=== PATIENT | female | born 1940 | race Caucasian/White ===

== ENCOUNTER 2017-06-08 00:42 | Inpatient (IN) | payer OTHER ==
[~2017-06-08] VITALS: Ht 160 cm; Wt 53.0 kg
[~2017-06-08 00:42] MED LIST: AMLO-110 PO; CHOL100027 PO; HYOS0.1271 PO; LEVO-366 PO; LISI-725 PO
[2017-06-08] MEDS ORDERED: METHYLPREDNISOLONE 125 MG VIAL IV STA (01:05)
[2017-06-08] MEDS ORDERED: RANITIDINE HCL SYRUP 150 MG/10 ML UDC PO STA (01:05)
[2017-06-08] MEDS ORDERED: GI COCKTAIL PO STA (01:05)
[2017-06-08] MEDS ORDERED: SUCRALFATE 1 GM/10 ML UDC PO STA (01:05)
[2017-06-08] MEDS ORDERED: ALBUT/IPRATROP 3MG/0.5MG NEB 3 ML VIAL INH ONE (01:15)
--- NOTE | 2017-06-08 01:18 | EMERGENCY ROOM VISIT NOTE ---
History Report prepared by [employer]: Manuel Saez Under the Supervision of: Dr. Trav Reyes M.D. First contact with patient: 00:54 Chief Complaint: RESPIRATORY PROBLEMS Stated Complaint: DIFFICULTY BREATHING Nursing Triage Summary: Pt to triage in wheelchair. c/o cough for 6 weeks, at times productive. Has been on 4 different abx from PCP. Pt on Levaquin and Hyoscyamine for the past 3 days."I just can't get any relief". Pt has Inclusive Body Myocitis. Denies chest pain History of Present Illness The patient is a 76 year old female who presents to the Emergency Room with complaints of a constant cough for the past 6 weeks. The patient states that she has a history of inclusive body myositis. The patient states that she has had this cough for a while, and she has been on four different antibiotics. She states that she is additionally short of breath, and the cough is worse while lying down. She states that she is not any medications for her stomach. Source of History: patient Onset: six weeks ago Position: other (global) Quality: other (cough) Timing: constant Modifying Factors (Worsening): other (lying down) Associated Symptoms: + SOB Review of Systems See HPI for pertinent positives & negatives. A total of 10 systems reviewed and were otherwise negative. Past Medical & Surgical Medical Problems: (1) Generalized muscle weakness (2) Hypertension (3) Inclusion body myositis (4) Myositis (5) Osteoporosis (6) SOB (shortness of breath) Surgical Problems: (1) History of hysterectomy Social History Smoking Status: Never Smoker Alcohol Use: none Marital Status: Occupation Status: retired Current/Historical Medications Scheduled Amlodipine (Norvasc), 5 MG PO DAILY Aspirin (Ecotrin Low Strength), 81 MG PO DAILY Atorvastatin (Lipitor), 10 MG PO DAILY Calcium Phosphate-Cholecalcife (Caltrate Gummy Bites), 2 TABS PO DAILY Fluticasone Propionate (Nasal) (Flonase Allergy Relief), 2 SPRAYS CINTHIA DAILY Levofloxacin (Levaquin), 500 MG PO DAILY Lisinopril (Prinivil), 30 MG PO DAILY Loratadine (Claritin), 10 MG PO DAILY Scheduled PRN Benzonatate (Tessalon Perles), 1 CAP PO TID PRN for Cough Hydrocodone W/ Homatropine (Hycodan 5/1.5MG 5 Ml), 5 ML PO Q6H PRN for Cough Hyoscyamine Sulfate (Hyoscyamine Sulfate), 0.125 MG PO BID PRN for UNDECIDED Allergies Coded Allergies: Sulfa Drugs (Verified Allergy, Unknown, 12/02/09) Physical Exam Vital Signs Date Time Temp Pulse Resp B/P (MAP) Pulse Ox O2 Delivery O2 Flow Rate FiO2 06/08/17 04:17 134 17 96 06/08/17 04:01 132/83 06/08/17 03:47 133 36 94 06/08/17 03:17 136 24 95 06/08/17 03:01 137/79 06/08/17 02:51 117/96 06/08/17 02:51 127 16 117/96 96 Room Air 06/08/17 02:47 129 13 97 06/08/17 02:17 112 19 97 06/08/17 01:47 115 17 93 06/08/17 01:42 116 13 96 06/08/17 01:14 109 06/08/17 01:12 110 14 94 06/08/17 01:10 97 Room Air 06/08/17 01:10 157/75 06/08/17 00:53 97 Room Air 06/08/17 00:46 36.9 115 22 158/83 97 Room Air Physical Exam GENERAL: Patient is a healthy-appearing well-nourished female HEAD: Normocephalic atraumatic EYES: Ocular movements intact pupils equal and react to light OROPHARYNX mucous membranes are moist no exudates present no erythema or edema present NECK: Supple no nuchal rigidity CHEST: Good equal expansion LUNGS: Actively coughing. Bilateral wheezing throughout both lung pelayo. CARDIAC: Normal S1 and S2 ABDOMEN: Soft nontender no guarding BACK: No CVA tenderness EXTREMITIES: 3/5 strength bilaterally in the arms. 2/5 strength in the legs bilaterally. No pain upon palpation no clubbing cyanosis or edema. NEURO: Patient is following commands and answering questions appropriately. Alert and oriented x3 Cranial Nerves 2-12 grossly intact Medical Decision & Procedures ER Provider Diagnostic Interpretation: X-ray results as stated below per interpretation by me: Chest One View: No evidence of pneumonia or pneumothorax. Appers to have increased congestion throughout both lung pelayo. CT results as stated below per my review and radiologist interpretation: CT CHEST with contrast: No evidence of PE. Underinflated lungs with minimal atelectasis in the lung bases. No pleural effusions. Heart size is normal. Thoracic aorta is unremarkable. Compression deformity T12 Laboratory Results 06/08/17 01:18 Red Blood Count 3.58, Mean Corpuscular Volume 86.9, Mean Corpuscular Hemoglobin 29.6, Mean Corpuscular Hemoglobin Concent 34.1, Mean Platelet Volume 8.0, Neutrophils (%) (Auto) 56.9, Lymphocytes (%) (Auto) 31.3, Monocytes (%) (Auto) 8.1, Eosinophils (%) (Auto) 2.3, Basophils (%) (Auto) 0.9, Neutrophils # (Auto) 3.21, Lymphocytes # (Auto) 1.77, Monocytes # (Auto) 0.46, Eosinophils # (Auto) 0.13, Basophils # (Auto) 0.05 06/08/17 01:18 Test 06/08/17 01:18 06/08/17 01:52 White Blood Count 5.65 K/uL (4.8-10.8) Red Blood Count 3.58 M/uL (4.2-5.4) Hemoglobin 10.6 g/dL (12.0-16.0) Hematocrit 31.1 % (37-47) Mean Corpuscular Volume 86.9 fL (80-100) Mean Corpuscular Hemoglobin 29.6 pg (25-34) Mean Corpuscular Hemoglobin Concent 34.1 g/dl (32-36) Platelet Count 155 K/uL (130-400) Mean Platelet Volume 8.0 fL (7.4-10.4) Neutrophils (%) (Auto) 56.9 % Lymphocytes (%) (Auto) 31.3 % Monocytes (%) (Auto) 8.1 % Eosinophils (%) (Auto) 2.3 % Basophils (%) (Auto) 0.9 % Neutrophils # (Auto) 3.21 K/uL (1.4-6.5) Lymphocytes # (Auto) 1.77 K/uL (1.2-3.4) Monocytes # (Auto) 0.46 K/uL (0.11-0.59) Eosinophils # (Auto) 0.13 K/uL (0-0.5) Basophils # (Auto) 0.05 K/uL (0-0.2) RDW Standard Deviation 48.1 fL (36.4-46.3) RDW Coefficient of Variation 15.0 % (11.5-14.5) Immature Granulocyte % (Auto) 0.5 % Immature Granulocyte # (Auto) 0.03 K/uL (0.00-0.02) Anion Gap 8.0 mmol/L (3-11) Est Creatinine Clear Calc Drug Dose 160.8 ml/min Estimated GFR () 139.7 Estimated GFR (Non- 120.5 BUN/Creatinine Ratio 73.0 (10-20) Calcium Level 8.5 mg/dl (8.5-10.1) Total Bilirubin 0.4 mg/dl (0.2-1) Aspartate Amino Transf (AST/SGOT) 30 U/L (15-37) Alanine Aminotransferase (ALT/SGPT) 21 U/L (12-78) Alkaline Phosphatase 115 U/L (45-117) Total Creatine Kinase 49 U/L (26-192) Creatine Kinase MB 2.8 ng/ml (0.5-3.6) Creatine Kinase MB Ratio 5.7 (0-3.0) Troponin I < 0.015 ng/ml (0-0.045) Pro-B-Type Natriuretic Peptide 256 pg/ml (0-900) Total Protein 7.6 gm/dl (6.4-8.2) Albumin 3.1 gm/dl (3.4-5.0) Globulin 4.5 gm/dl (2.5-4.0) Albumin/Globulin Ratio 0.7 (0.9-2) Arterial Blood pH 7.44 (7.35-7.45) Arterial Blood Partial Pressure CO2 30 mmHg (35-46) Arterial Blood Partial Pressure O2 69 mm/Hg (80-95) Arterial Blood HCO3 20 mmol/L (19-24) Arterial Blood Oxygen Saturation 92.7 % (90-95) Arterial Blood Base Excess -3.4 mEq/L (-9-1.8) Arterial Blood Gas Delivery ROOM AIR Matteo Test POS (POS) Labs reviewed by ED physician. Medications Administered Medications (Trade) Dose Ordered Sig/Kristy Route Start Time Stop Time Status Last Admin Dose Admin Albuterol/ Ipratropium (Duoneb) 12 ml ONE ONCE INH 06/08/17 01:15 06/08/17 01:16 DC 06/08/17 01:33 12 ML Sucralfate (Carafate Susp) 1 gm NOW STAT PO 06/08/17 01:05 06/08/17 01:09 DC 06/08/17 01:38 1 GM Ranitidine HCl (zANTac SYRUP) 150 mg NOW STAT PO 06/08/17 01:05 06/08/17 01:09 DC 06/08/17 01:28 150 MG Methylprednisolone Sodium Succinate (Solu-Medrol IV) 60 mg NOW STAT IV 06/08/17 01:05 06/08/17 01:09 DC 06/08/17 01:28 60 MG Al Hydroxide/Mg Hydroxide (Maalox Susp) 30 ml STK-MED ONCE .ROUTE 06/08/17 01:20 06/08/17 01:21 DC 06/08/17 01:28 30 ML Lidocaine HCl (Viscous Lidocaine 2% Soln) 20 ml STK-MED ONCE .ROUTE 06/08/17 01:20 06/08/17 01:21 DC 06/08/17 01:28 20 ML Doxycycline Hyclate (Vibramycin Cap) 100 mg STK-MED ONCE PO 06/08/17 03:55 06/08/17 03:56 DC 06/08/17 03:57 100 MG ECG Indication: other (cough) Rate (beats per minute): 109 Rhythm: sinus tachycardia Findings: no acute ischemic change, no ectopy, other (Previous inferior infarct ) ED Course 0058: Past medical records reviewed. The patient was evaluated in room B10. A complete history and physical examination was performed. 0105: Solu-Medrol IV 60mg IV, Ranitidine HCl 150mg PO, Sucralfate 1gm PO 0115: DuoNeb 12ml INH 0120: Viscous Lidocaine 2% Soln 20ml PO, Maalox Susp 30ml PO 0239: I discussed the patient's case with Dr. Dominguez, he has agreed to evaluate the patient for further management and care. 0245: I reevaluated the patient, and I discussed the treatment plan with her, and she is agreeable to the plan. Medical Decision Differential diagnosis: Etiologies such as infections, reactive airway disease, pneumonia, pneumothorax , COPD, CHF, cardiac ischemia, pulmonary embolism, musculoskeletal, gastrointestinal, as well as others were entertained. This is a 76-year-old female who has had a progressive cough over the past month despite being on multiple antibiotics. The patient feels that she is not improving however she is unable to take deep breaths. The patient is wheezing on examination therefore she was given an hour-long breathing treatment along with Solu-Medrol. Her peak flow is only 50 and the patient was evaluated by respiratory. I do feel that the patient is a poor candidate to be discharged home therefore I did discuss the case with the hospitalist service who agreed to admit the patient. Patient was in agreement with the treatment plan. Medication Reconcilliation Current Medication List: was personally reviewed by me Blood Pressure Screening Patient's blood pressure: Normal blood pressure Consults Time Called: [phone] Consulting Physician: Libia Suarez Returned Call: [phone] I discussed the patient's case with Dr. Dominguez, he has agreed to evaluate the patient for further management and care. Impression Primary Impression: Dyspnea Scribe Attestation The scribe's documentation has been prepared under my direction and personally reviewed by me in its entirety. I confirm that the note above accurately reflects all work, treatment, procedures, and medical decision making performed by me. Departure Information Dispostion Being Evaluated By Hospitalist Referrals Keke Colon D.O. (PCP) Patient Instructions My [facility] Problem Qualifiers Primary Impression: Dyspnea Dyspnea type: unspecified Qualified Codes: R06.00 - Dyspnea, unspecified
[2017-06-08] MEDS ORDERED: LIDOCAINE HCL 2% VISC SOLN 20 ML UDC ONE (01:20)
[2017-06-08] MEDS ORDERED: ALUMINUM/MAGNESIUM SUSP 30 ML UDC ONE (01:20)
[2017-06-08 01:35] LABS: BASO % 0.9 %; BASO ABS # 0.05 K/uL (0-0.2); COMPLETE YES; EOS % 2.3 %; HEMATOCRIT 31.1 % (37-47); IG% 0.5 %; LYMPH % 31.3 %; LYMPH ABS # 1.77 K/uL (1.2-3.4); MEAN CELL VOLUME 86.9 fL (80-100); MEAN CORPUSCULAR HEMOGLOBIN 29.6 pg (25-34); MEAN CORPUSCULAR HGB CONC 34.1 g/dl (32-36); MONO % 8.1 %; NEUT % 56.9 %; PLATELET COUNT 155 K/uL (130-400); RED BLOOD COUNT 3.58 M/uL (4.2-5.4); WHITE BLOOD COUNT 5.65 K/uL (4.8-10.8)
[2017-06-08 01:43] LABS: ALT/SGPT 21 U/L (12-78); AST/SGOT 30 U/L (15-37); BLOOD UREA NITROGEN 18 mg/dl (7-18); CALCIUM 8.5 mg/dl (8.5-10.1); CARBON DIOXIDE 23 mmol/L (21-32); CHLORIDE 103 mmol/L (98-107); CREATININE 0.24 mg/dl (0.60-1.20); GLUCOSE 93 mg/dl (70-99); POTASSIUM 4.5 mmol/L (3.5-5.1); SODIUM 134 mmol/L (136-145)
[2017-06-08] MEDS ORDERED: OPTIRAY 320 IV PRN (01:45)
[2017-06-08 01:48] LABS: ALB/GLOB RATIO 0.7 (0.9-2); ALKALINE PHOSPHATASE 115 U/L (45-117); CKMB/CK RATIO 5.7 (0-3.0)
[2017-06-08] MEDS ORDERED: ATOR10TA88 PO (01:50)
[2017-06-08] MEDS ORDERED: AMLO-110 PO (01:50)
[2017-06-08] MEDS ORDERED: FLUT0.15 NAE (01:50)
[2017-06-08] MEDS ORDERED: LISI-526 PO (01:50)
[2017-06-08] MEDS ORDERED: CLR10 PO (01:50)
[2017-06-08] MEDS ORDERED: ASPI-428 PO (01:51)
[2017-06-08] MEDS ORDERED: CALC1CHW32 PO (01:52)
[2017-06-08] MEDS ORDERED: BENZ100C84 PO (01:52)
[2017-06-08] MEDS ORDERED: HYDR5SYP11 PO (01:53)
[2017-06-08 02:05] LABS: ALLEN TEST POS (POS); ARTERIAL BLD GAS O2 SATURATION 92.7 % (90-95); ARTERIAL BLOOD GAS BASE EXCESS -3.4 mEq/L (-9-1.8); ARTERIAL BLOOD GAS HCO3 20 mmol/L (19-24); ARTERIAL BLOOD GAS PO2 69 mm/Hg (80-95); ARTERIAL BLOOD GAS pH 7.44 (7.35-7.45); O2 ADMINISTRATION ROOM AIR
[2017-06-08] MEDS ORDERED: BENZONATATE 100MG CAP PO PRN (03:45)
[2017-06-08] MEDS ORDERED: HYDROCODONE/HOMATROPINE SYRUP 5MG/1.5MG 5ML UDP PO PRN (03:45)
[2017-06-08] MEDS ORDERED: HYOSCYAMINE SULFATE 0.125 MG SL TAB PO PRN ×2 (03:45→04:45)
[2017-06-08] MEDS ORDERED: ONDANSETRON INJ 2 MG/ML 2 ML VIAL IV PRN (03:45)
[2017-06-08] MEDS ORDERED: ACETAMINOPHEN 325 MG TAB PO PRN (03:45)
[2017-06-08] MEDS ORDERED: DOXYCYCLINE HYCLATE 100 MG CAP PO ONE (03:55)
[2017-06-08] MEDS ORDERED: DOXYCYCLINE HYCLATE 100 MG CAP PO STA (03:59)
[2017-06-08] MEDS ORDERED: SODIUM CHLORIDE 0.9% 1000ML 1,000 ML IV SCH (04:45)
[2017-06-08 05:00] VITALS: BP 124/84; PULSE 132; TEMP 36.8; Ht 160 cm; Wt 53.0 kg
--- NOTE | 2017-06-08 05:09 | HISTORY & PHYSICAL EXAMINATION ---
DATE OF ADMISSION: 06/08/2017 PRIMARY CARE PHYSICIAN: Dr Orellana CHIEF COMPLAINT: Progressive shortness of breath for the last 4-6 weeks. 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 Apparently, has been complaining of shortness of breath with cough for the last 6 weeks. She has had 4 courses of different antibiotics for the same, but her breathing has been getting worse due to progressive muscle weakness secondary to inclusion body myositis. She denies to any fever, any chills. She does not have any chest pain, any palpitation. No abdominal pain, nausea, no vomiting and does not have any problem with urine and/or bowel habit. In the Emergency Room, she was afebrile, tachycardia of 115 and blood pressure is 158/83. She did have normal white count and the chest x-ray and CAT scan did not show any significant findings except low lung volume, but given her progressive shortness of breath and low saturation she was admitted to medical floor for continuation of care. PAST MEDICAL HISTORY: Significant for inclusion body myositis that was diagnosed about 12 month ago, she was seen by airways control specialist and was told that nothing more they can do to improve her condition. Progressive muscle weakness secondary to inclusion body myositis, started with her weakness in the legs and now involving the upper extremities as well. She could hardly come out of bed by herself and more recently respiratory muscles are involved as well. She has osteoporosis, hypertension, hyperlipidemia, remote history ANDERSON and also vitamin D deficiency. PAST SURGICAL HISTORY: Cataract surgery, repair of bladder and vagina, total hysterectomy. FAMILY HISTORY: Mother had colon cancer and diabetes and mother also did have heart disorder.. No history of myopathy in the family. SOCIAL HISTORY: She is a . She has 2 children. She quit smoking in 1969. She does not drink any alcohol and she has been almost bedbound. She has been getting help at home from home health and family members. She cannot come out of bed. She cannot move her legs and recently she cannot move her upper extremity as well. Her swallowing is reasonably okay. ALLERGIES: SULFA DRUGS. MEDICATIONS: She has been on levothyroxine 500 mcg daily for 10 days, amlodipine 5 mg daily, aspirin 81 mg daily, Lipitor 10 mg daily, Tessalon Perles 100 mg t.i.d., calcium phosphate and Caltrate 2 tablets daily, nasal spray 2 sprays daily that is Flonase, hydrocodone with Homatropine, Hycodan 5 mL q. 6 hourly p.r.n., hyoscyamine sulfate 0.125 mg b.i.d. as needed, lisinopril 30 mg daily, and Claritin 10 mg daily. REVIEW OF SYSTEMS: Other systems reviewed, unremarkable except for those mentioned in history of present complaint. PHYSICAL EXAMINATION: GENERAL: On examination in the Emergency Room, she is a thin built lady with moderate shortness of breath at rest. No other acute distress. VITAL SIGNS: Temperature 36.9, pulse is 115, blood pressure 158/83, saturation 97%. HEENT: Unremarkable. NECK: Supple, no JVD, no bruit. CHEST: Decreased breath sounds with fine crackles at the bases. HEART: S1, S2 regular, no murmur. ABDOMEN: Soft, benign, nontender, no organomegaly. Bowel sounds present. EXTREMITIES: Trace edema bilaterally. MUSCULOSKELETAL SYSTEM: No acute arthritis involving any joint. CENTRAL NERVOUS SYSTEM: She was alert, awake, oriented x3. She has weakness all over her upper extremity, may have 1-2 power out of 5 and lower extremity 1/5. She does not have any sensory impairment. LABORATORY DATA: Noted today white count was 5.65, H&H 10.6/31.1, platelet was 155. Sodium 134, potassium 4.5, chloride 103, carbon dioxide 23, BUN 18, creatinine 0.24, random glucose 93. LFTs normal. CK, CK-MB unremarkable. Albumin was 3.1. Arterial blood gas pH 7.44, pCO2 of 30 and pO2 of 69. Chest x-ray, no acute findings. CT of the chest to rule out pulmonary embolism, no pulmonary embolism, minimal atelectasis at the lung bases and no effusion. EKG was in sinus rhythm, rate of 109, left axis deviation, questionable inferior infarct, but no other acute findings. IMPRESSION AND PLAN: 1. Shortness of breath secondary to progressive weakness due to inclusion body myositis. She will be admitted to medical floor. She is hypoxic on room air. She will need oxygen therapy continuously, chest physiotherapy will be given and she will be given Solu-Medrol, nebulized bronchodilator and also doxycycline for probable bronchitis. 2. Inclusion body myositis with progressive weakness. She is almost bedbound. She could hardly do anything for herself. Her progressive weakness is getting worse involving the upper extremities recently and also lung muscles, but her swallowing is reasonably okay so far. We will have to get physical therapy involved and she may need placement or more help at home. 3. Hypertension. Blood pressure seems to be controlled. Continue with current medication. 4. Hyperlipidemia. Continue with current medications. 5. History of nonalcoholic steatohepatitis, no acute liver abnormality. Will check INR tomorrow and PTT. 6. Deep venous thrombosis prophylaxis with subcutaneous heparin. 7. Gastrointestinal prophylaxis with Maalox, Mylanta. 8. Code status. Discussed with the patient. She wishes to be do not resuscitate. In my clinical judgment, the beneficiary meets criteria as per CMS for 2 midnight stay in the hospital. MTDD
[2017-06-08 06:54] LABS: INR 1.1 (0.9-1.1); PROTHROMBIN TIME (PATIENT) 11.8 SECONDS (9.0-12.0)
[2017-06-08 07:23] VITALS: BP 127/82; PULSE 107; TEMP 36.6; O2SAT 95
--- NOTE | 2017-06-08 07:35 | DIAGNOSTIC IMAGING REPORT ---
CHEST CTA for PULMONARY ARTERIES CT DOSE: 270.20 mGy.cm HISTORY: Short of breath. Cough. TECHNIQUE: Multiaxial CT images of the chest were performed following the intravenous administration of contrast to evaluate the pulmonary arteries. Maximal intensity projection images were also obtained. A dose lowering technique was utilized adhering to the principles of ALARA. COMPARISON STUDY: Chest 06/08/2017. FINDINGS: Chronic T12 compression deformity. The visualized liver and adrenal glands are unremarkable. The partially visualized spleen is enlarged. Splenic varices are present. Possible periportal and splenic hilar lymphadenopathy. However, this is only partially visualized on this study. Prominent upper right peritracheal lymph node measuring 9 mm in short axis diameter. No pleural or pericardial effusions. Mild elevation of the left hemidiaphragm. The heart is normal in size. No hilar lymphadenopathy. The majority of the mediastinal lymph nodes are subcentimeter. There is a single prominent subcarinal lymph node measuring 1.5 cm. Small amount of mucoid material within the bilateral mainstem bronchi with partial opacification of the bilateral lower lobe bronchi. No pneumothorax. Suboptimal evaluation of the lungs due to motion artifact. Patchy groundglass densities within the base of the left lower lobe. This may represent atelectasis or pneumonia. Normal caliber thoracic aorta with no evidence for dissection. Bilateral lower lobe segmental and subsegmental pulmonary arteries are nondiagnostic due to the motion artifact. Remaining pulmonary arteries show no filling defects to suggest pulmonary embolus. IMPRESSION: 1. No evidence for pulmonary embolus with limitations as described above. 2. Small amount of mucoid material within the bilateral mainstem bronchi with partial opacification of the bilateral lower lobe bronchi. Patchy groundglass airspace opacities within the base of the left lower lobe are nonspecific and may represent atelectasis or pneumonia. 3. Splenomegaly. There is suggestion of possible splenic hilar and periportal lymphadenopathy. This is only partially visualized on this study. Therefore, follow-up nonemergent contrast-enhanced abdomen and pelvis CT is recommended to exclude the possibility of a lymphoma. 4. Single prominent upper right peritracheal and subcarinal lymph node. Electronically signed by: Jefferson Cantu M.D. 06/08/2017 7:34 AM Dictated Date/Time: 06/08/2017 7:24 AM
[2017-06-08 07:52] LABS: URINE APPEARANCE CLEAR (CLEAR); URINE BILIRUBIN NEG (NEG); URINE COLOR YELLOW; URINE NITRITE NEG (NEG); URINE SPECIFIC GRAVITY 1.033 (1.000-1.030); UROBILINOGEN NEG (NEG)
--- NOTE | 2017-06-08 07:52 | DIAGNOSTIC IMAGING REPORT ---
CHEST ONE VIEW PORTABLE HISTORY: Pt c/o cough COMPARISON: None. FINDINGS: The right lung is clear. Cardiac silhouette is normal in size. No pleural effusions. No pneumothorax. Mild elevation the left hemidiaphragm. Left basilar linear densities consistent with subsegmental atelectasis. IMPRESSION: No acute process. Electronically signed by: Jefferson Cantu M.D. 06/08/2017 7:50 AM Dictated Date/Time: 06/08/2017 7:50 AM
[2017-06-08 07:53] LABS: MANUAL MICROSCOPIC REQUIRED? NO; REVIEW REQ? NO
[2017-06-08] MEDS: LISINOPRIL 10 MG TAB PO SCH (10:30)
[2017-06-08] MEDS: LORATADINE 10 MG TAB PO SCH (10:30)
[2017-06-08] MEDS: ATORVASTATIN 10 MG TAB PO SCH (10:30)
[2017-06-08] MEDS: FLUTICASONE PROPIONATE NA SPR 16 GM BTL NAE SCH (10:30)
[2017-06-08] MEDS: AMLODIPINE BESYLATE 5 MG TAB PO SCH (10:30)
[2017-06-08] MEDS: ASPIRIN 81 MG ECTAB PO SCH (10:30)
[2017-06-08] MEDS: METHYLPREDNISOLONE IV 40 MG in SYRINGE 0 ML IV SCH ×3 (10:30→19:58)
[2017-06-08] MEDS: CALCIUM 600MG + VIT D 400 IU TAB PO SCH (12:47)
[2017-06-08] MEDS: HEPARIN SOD 5000 UNIT/0.5 ML CARP SQ SCH ×2 (14:28→21:26)
[2017-06-08 15:32] VITALS: BP 100/64; PULSE 110; TEMP 36.7; O2SAT 94
[2017-06-08] MEDS: DOXYCYCLINE HYCLATE 100 MG CAP PO SCH (19:58)
[2017-06-08 20:00] VITALS: O2SAT 94
--- NOTE | 2017-06-08 20:17 | Progress Note ---
Progress Note Date of Service Jun 08, 2017 11:00 . Progress Note Brief recheck. Admitted earlier this morning with pneumonia. Cough improved. Afebrile. Oxygenating well. No distress. Rales left base. Continue doxycycline. Add ceftriaxone for broader coverage. .
[2017-06-08] MEDS: CEFTRIAXONE SOD INJ 1 GM in DEXTROSE 5% ADD-VANTAGE 50ML 50 ML IV SCH (21:25)
[2017-06-08 23:46] VITALS: BP 114/70; PULSE 89; TEMP 36.4; O2SAT 93
[2017-06-09] MEDS: HEPARIN SOD 5000 UNIT/0.5 ML CARP SQ SCH ×3 (05:44→21:15)
[2017-06-09 06:39] LABS: BASO % 0.3 %; BASO ABS # 0.01 K/uL (0-0.2); COMPLETE YES; HEMATOCRIT 28.5 % (37-47); IG% 1.6 %; LYMPH % 20.1 %; LYMPH ABS # 0.77 K/uL (1.2-3.4); MEAN CELL VOLUME 86.4 fL (80-100); MEAN CORPUSCULAR HEMOGLOBIN 29.1 pg (25-34); MEAN CORPUSCULAR HGB CONC 33.7 g/dl (32-36); MEAN PLATELET VOLUME 8.1 fL (7.4-10.4); MONO % 17.5 %; NEUT % 60.5 %; PLATELET COUNT 163 K/uL (130-400); WHITE BLOOD COUNT 3.83 K/uL (4.8-10.8)
[2017-06-09 07:06] VITALS: BP 115/68; PULSE 79; TEMP 36.6; O2SAT 98
[2017-06-09 07:59] LABS: ALT/SGPT 14 U/L (12-78); BUN/CREATININE RATIO 180.5 (10-20); CALCIUM 8.3 mg/dl (8.5-10.1); CARBON DIOXIDE 20 mmol/L (21-32); CHLORIDE 108 mmol/L (98-107); CREATININE 0.19 mg/dl (0.60-1.20); GLUCOSE 106 mg/dl (70-99); MAGNESIUM 2.3 mg/dl (1.8-2.4); POTASSIUM 4.2 mmol/L (3.5-5.1); SODIUM 138 mmol/L (136-145)
[2017-06-09] MEDS: CALCIUM 600MG + VIT D 400 IU TAB PO SCH (08:00)
[2017-06-09 08:02] LABS: ALB/GLOB RATIO 0.7 (0.9-2); ALKALINE PHOSPHATASE 79 U/L (45-117); AST/SGOT 23 U/L (15-37); PHOSPHORUS 3.7 mg/dl (2.5-4.9)
[2017-06-09 08:08] LABS: BLOOD UREA NITROGEN 34 mg/dl (7-18)
[2017-06-09] MEDS: METHYLPREDNISOLONE IV 40 MG in SYRINGE 0 ML IV SCH ×3 (08:20→19:33)
[2017-06-09] MEDS: LORATADINE 10 MG TAB PO SCH (08:21)
[2017-06-09] MEDS: DOXYCYCLINE HYCLATE 100 MG CAP PO SCH ×2 (08:21→19:33)
[2017-06-09] MEDS: FLUTICASONE PROPIONATE NA SPR 16 GM BTL NAE SCH (08:21)
[2017-06-09] MEDS: ATORVASTATIN 10 MG TAB PO SCH (08:22)
[2017-06-09] MEDS: ASPIRIN 81 MG ECTAB PO SCH (08:22)
[2017-06-09] MEDS: LISINOPRIL 10 MG TAB PO SCH (08:22)
[2017-06-09] MEDS: AMLODIPINE BESYLATE 5 MG TAB PO SCH (08:22)
[2017-06-09 15:36] VITALS: BP 114/74; PULSE 92; TEMP 36.7; O2SAT 98
--- NOTE | 2017-06-09 20:30 | Progress Note ---
Medicine Progress Note Date & Time of Visit: Jun 09, 2017 at 09:10 . Subjective Feels better. No fever. Cough and dyspnea improved. No chest pain. No nausea, vomiting, diarrhea. . Objective Last 8 Hrs Date Time Temp Pulse Resp B/P (MAP) Pulse Ox O2 Delivery O2 Flow Rate FiO2 06/09/17 16:00 Room Air 06/09/17 15:36 36.7 92 17 114/74 (87) 98 Physical Exam: General- no distress Lungs- rales left base Heart- RRR Abdomen- + BS, soft, nontender Extremities- no pretibial edema or calf tenderness Neuro- alert; diffuse motor weakness . Laboratory Results: Last 24 Hours Test 06/09/17 05:49 White Blood Count 3.83 K/uL Red Blood Count 3.30 M/uL Hemoglobin 9.6 g/dL Hematocrit 28.5 % Mean Corpuscular Volume 86.4 fL Mean Corpuscular Hemoglobin 29.1 pg Mean Corpuscular Hemoglobin Concent 33.7 g/dl Platelet Count 163 K/uL Mean Platelet Volume 8.1 fL Neutrophils (%) (Auto) 60.5 % Lymphocytes (%) (Auto) 20.1 % Monocytes (%) (Auto) 17.5 % Eosinophils (%) (Auto) 0.0 % Basophils (%) (Auto) 0.3 % Neutrophils # (Auto) 2.32 K/uL Lymphocytes # (Auto) 0.77 K/uL Monocytes # (Auto) 0.67 K/uL Eosinophils # (Auto) 0.00 K/uL Basophils # (Auto) 0.01 K/uL RDW Standard Deviation 48.2 fL RDW Coefficient of Variation 15.1 % Immature Granulocyte % (Auto) 1.6 % Immature Granulocyte # (Auto) 0.06 K/uL Sodium Level 138 mmol/L Potassium Level 4.2 mmol/L Chloride Level 108 mmol/L Carbon Dioxide Level 20 mmol/L Anion Gap 10.0 mmol/L Blood Urea Nitrogen 34 mg/dl Creatinine 0.19 mg/dl Est Creatinine Clear Calc Drug Dose 211.6 ml/min Estimated GFR () > 150.0 Estimated GFR (Non- 130.2 BUN/Creatinine Ratio 180.5 Random Glucose 106 mg/dl Calcium Level 8.3 mg/dl Phosphorus Level 3.7 mg/dl Magnesium Level 2.3 mg/dl Total Bilirubin 0.2 mg/dl Aspartate Amino Transf (AST/SGOT) 23 U/L Alanine Aminotransferase (ALT/SGPT) 14 U/L Alkaline Phosphatase 79 U/L Total Protein 6.7 gm/dl Albumin 2.7 gm/dl Globulin 4.0 gm/dl Albumin/Globulin Ratio 0.7 Assessment & Plan PNEUMONIA CT of chest demonstrated bilateral lower lobe infiltrates. Receiving doxycycline, ceftriaxone, and steroids with improvement. May be at risk for aspiration due to underlying inclusion body myositis. Consult ART FRAMING MANAGER for bedside swallowing evaluation. Continue antibiotics and steroids. HYPERTENSION Continue amlodipine and lisinopril. INCLUSION BODY MYOSITIS Supportive care. VTE PROPHYLAXIS SQ heparin. DISPOSITION Expected discharge to home. Family Medicine follow-up with Dr. Colon. . Current Inpatient Medications: Current Inpatient Medications Medications (Trade) Dose Ordered Sig/Kristy Route Start Time Stop Time Status Last Admin Dose Admin Ioversol (Optiray 320) 100 ml UD PRN IV 06/08/17 01:45 06/12/17 01:44 Heparin Sodium (Porcine) (Heparin Sq 5000 Unit/0.5ml) 5,000 unit Q8 SQ 06/08/17 14:00 07/08/17 13:59 06/09/17 13:45 5,000 UNIT Acetaminophen (Tylenol Tab) 650 mg Q4H PRN PO 06/08/17 03:45 07/08/17 03:44 Ondansetron HCl (Zofran Inj) 4 mg Q6H PRN IV 06/08/17 03:45 07/08/17 03:44 Amlodipine Besylate (Norvasc Tab) 5 mg DAILY PO 06/08/17 08:00 07/08/17 08:59 06/09/17 08:22 5 MG Aspirin (Ecotrin Tab) 81 mg DAILY PO 06/08/17 08:00 07/08/17 08:59 06/09/17 08:22 81 MG Atorvastatin Calcium (Lipitor Tab) 10 mg DAILY PO 06/08/17 08:00 07/08/17 08:59 06/09/17 08:22 10 MG Benzonatate (Tessalon Perles Cap) 100 mg TID PRN PO 06/08/17 03:45 07/08/17 03:44 Fluticasone Propionate (Flonase Nasal Comfrey) 2 sprays DAILY CINTHIA 06/08/17 08:00 07/08/17 08:59 06/09/17 08:21 2 SPRAYS Hydrocodone Bit/ Homatropine Methylb (Hycodan Syrup) 5 ml Q6H PRN PO 06/08/17 03:45 06/22/17 03:44 Loratadine (Claritin Tab) 10 mg DAILY PO 06/08/17 08:00 07/08/17 08:59 06/09/17 08:21 10 MG Calcium/Vitamin D (Caltrate Plus Tab) 2 tab DAILY PO 06/08/17 08:00 07/08/17 08:59 Lisinopril (Zestril Tab) 30 mg DAILY PO 06/08/17 08:00 07/08/17 08:59 06/09/17 08:22 30 MG Doxycycline Hyclate (Vibramycin Cap) 100 mg BID PO 06/08/17 20:00 06/15/17 19:59 06/09/17 19:33 100 MG Methylprednisolone Sodium Succinate 40 mg/Syringe 0.64 ml @ 1.5 mls/min TID IV 06/08/17 08:00 07/08/17 08:59 06/09/17 19:33 1.5 MLS/MIN Hyoscyamine Sulfate (Levsin Tab) 0.125 mg BID PRN PO 06/08/17 04:45 07/08/17 03:44 Ceftriaxone Sodium 1 gm/ Dextrose 50 ml @ 100 mls/hr Q24H IV 06/08/17 21:00 06/15/17 20:59 06/08/17 21:25 100 MLS/HR
[2017-06-09] MEDS: CEFTRIAXONE SOD INJ 1 GM in DEXTROSE 5% ADD-VANTAGE 50ML 50 ML IV SCH (21:14)
[2017-06-09 23:05] VITALS: BP 124/73; PULSE 92; TEMP 36.4; O2SAT 98
[2017-06-10 07:04] LABS: HEMATOCRIT 31.3 % (37-47); MEAN CELL VOLUME 87.2 fL (80-100); MEAN CORPUSCULAR HEMOGLOBIN 28.1 pg (25-34); MEAN CORPUSCULAR HGB CONC 32.3 g/dl (32-36); MEAN PLATELET VOLUME 7.7 fL (7.4-10.4); PLATELET COUNT 177 K/uL (130-400); RED BLOOD COUNT 3.59 M/uL (4.2-5.4); WHITE BLOOD COUNT 4.18 K/uL (4.8-10.8)
[2017-06-10 07:37] LABS: BLOOD UREA NITROGEN 39 mg/dl (7-18); BUN/CREATININE RATIO 214.3 (10-20); CALCIUM 8.2 mg/dl (8.5-10.1); CARBON DIOXIDE 24 mmol/L (21-32); CHLORIDE 111 mmol/L (98-107); CREATININE 0.18 mg/dl (0.60-1.20); GLUCOSE 94 mg/dl (70-99); POTASSIUM 4.5 mmol/L (3.5-5.1); SODIUM 140 mmol/L (136-145)
[2017-06-10 07:39] VITALS: BP 127/81; PULSE 79; TEMP 36.4; O2SAT 100
[2017-06-10 08:30] VITALS: O2SAT 100
[2017-06-10] MEDS: DOXYCYCLINE HYCLATE 100 MG CAP PO SCH ×2 (08:34→20:27)
[2017-06-10] MEDS: ASPIRIN 81 MG ECTAB PO SCH (08:34)
[2017-06-10] MEDS: ATORVASTATIN 10 MG TAB PO SCH (08:34)
[2017-06-10] MEDS: AMLODIPINE BESYLATE 5 MG TAB PO SCH (08:34)
[2017-06-10] MEDS: LISINOPRIL 10 MG TAB PO SCH (08:35)
[2017-06-10] MEDS: LORATADINE 10 MG TAB PO SCH (08:35)
[2017-06-10] MEDS: FLUTICASONE PROPIONATE NA SPR 16 GM BTL NAE SCH (08:36)
[2017-06-10] MEDS: CALCIUM 600MG + VIT D 400 IU TAB PO SCH (08:36)
[2017-06-10] MEDS: HEPARIN SOD 5000 UNIT/0.5 ML CARP SQ SCH ×2 (08:53→20:34)
--- NOTE | 2017-06-10 10:21 | Clinical Documentation Query ---
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 The patient has been having difficulty swallowing 2/2 IBM. In your clinical opinion is this patient being managed for: ( ) Possible Aspiration Pneumonia in setting of progressive weakness and swallow difficulty associated with IBM treated with IV Ceftriaxone and Doxycycline. ( ) Other explanation of clinical findings (Please Explain) ( x ) Unable to determine (Please Define) NO CLEAR ASPIRATION ( ) Need to Discuss ( ) Not Agree The medical record reflects the following clinical findings, treatment, and risk factors. Clinical Indicators: As above. 06/09 progress notes states patient is at risk for aspiration. Chest CT shows small amount of mucoid material within the bilateral mainstem bronchi with partial opacification of the bilateral lower lobe bronchi. Treatment: IV Ceftriaxone, PO Doxycycline, Swallow evaluation, Aspiration precautions, Risk Factors: IBM Please clarify and document your clinical opinion in the progress notes and discharge summary. Terms such as "probable", "suspected", "likely", "questionable", "possible", or "still to be ruled out" are acceptable. IF IN AGREEMENT, YOU MUST DOCUMENT ABOVE DIAGNOSTIC STATEMENT IN DAILY PROGRESS NOTES AND DISCHARGE SUMMARY. This document is not part of the patient's record. Thank You, David Palm, RN [phone]
[2017-06-10 14:46] VITALS: O2SAT 100
[2017-06-10 15:09] VITALS: BP 117/72; PULSE 96; TEMP 36.7; O2SAT 98
[2017-06-10] MEDS: GUAIFENESIN SUGAR FREE 100 MG/5 ML UDC PO SCH ×2 (18:01→20:27)
[2017-06-10] MEDS: CEFTRIAXONE SOD INJ 1 GM in DEXTROSE 5% ADD-VANTAGE 50ML 50 ML IV SCH (20:27)
--- NOTE | 2017-06-10 21:20 | Progress Note ---
Medicine Progress Note Date & Time of Visit: Jun 10, 2017 at 13:30 . Subjective Cough improved. No SOB. Afebrile. No chest pain. No nausea, vomiting, diarrhea. Seen by DISTRIBUTION CENTER SUPERVISOR earlier. . Objective Last 8 Hrs Date Time Temp Pulse Resp B/P (MAP) Pulse Ox O2 Delivery O2 Flow Rate FiO2 06/10/17 15:09 36.7 96 16 117/72 (87) 98 Room Air 06/10/17 14:46 100 Room Air Physical Exam: General- no distress Lungs- few rales left base Heart- RRR Abdomen- + BS, soft, nontender Extremities- no pretibial edema or calf tenderness Neuro- alert; diffuse motor weakness . Laboratory Results: Last 24 Hours Test 06/10/17 06:54 White Blood Count 4.18 K/uL Red Blood Count 3.59 M/uL Hemoglobin 10.1 g/dL Hematocrit 31.3 % Mean Corpuscular Volume 87.2 fL Mean Corpuscular Hemoglobin 28.1 pg Mean Corpuscular Hemoglobin Concent 32.3 g/dl RDW Standard Deviation 48.9 fL RDW Coefficient of Variation 15.2 % Platelet Count 177 K/uL Mean Platelet Volume 7.7 fL Sodium Level 140 mmol/L Potassium Level 4.5 mmol/L Chloride Level 111 mmol/L Carbon Dioxide Level 24 mmol/L Anion Gap 5.0 mmol/L Blood Urea Nitrogen 39 mg/dl Creatinine 0.18 mg/dl Est Creatinine Clear Calc Drug Dose 223.4 ml/min Estimated GFR () > 150.0 Estimated GFR (Non- 132.5 BUN/Creatinine Ratio 214.3 Random Glucose 94 mg/dl Calcium Level 8.2 mg/dl Assessment & Plan PNEUMONIA CT of chest demonstrated bilateral lower lobe infiltrates. Receiving doxycycline, ceftriaxone, and steroids with improvement. May be at risk for aspiration due to underlying inclusion body myositis. DISTRIBUTION CENTER SUPERVISOR consulted for bedside swallowing evaluation. Continue antibiotics and steroids. HYPERTENSION Continue amlodipine and lisinopril. INCLUSION BODY MYOSITIS Supportive care. VTE PROPHYLAXIS SQ heparin. DISPOSITION Expected discharge to home. Family Medicine follow-up with Dr. Colon. . Current Inpatient Medications: Current Inpatient Medications Medications (Trade) Dose Ordered Sig/Kristy Route Start Time Stop Time Status Last Admin Dose Admin Ioversol (Optiray 320) 100 ml UD PRN IV 06/08/17 01:45 06/12/17 01:44 Acetaminophen (Tylenol Tab) 650 mg Q4H PRN PO 06/08/17 03:45 07/08/17 03:44 Ondansetron HCl (Zofran Inj) 4 mg Q6H PRN IV 06/08/17 03:45 07/08/17 03:44 Amlodipine Besylate (Norvasc Tab) 5 mg DAILY PO 06/08/17 08:00 07/08/17 08:59 06/10/17 08:34 5 MG Aspirin (Ecotrin Tab) 81 mg DAILY PO 06/08/17 08:00 07/08/17 08:59 06/10/17 08:34 81 MG Atorvastatin Calcium (Lipitor Tab) 10 mg DAILY PO 06/08/17 08:00 07/08/17 08:59 06/10/17 08:34 10 MG Benzonatate (Tessalon Perles Cap) 100 mg TID PRN PO 06/08/17 03:45 07/08/17 03:44 Fluticasone Propionate (Flonase Nasal [place]) 2 sprays DAILY CINTHIA 06/08/17 08:00 07/08/17 08:59 06/10/17 08:36 2 SPRAYS Hydrocodone Bit/ Homatropine Methylb (Hycodan Syrup) 5 ml Q6H PRN PO 06/08/17 03:45 06/22/17 03:44 Loratadine (Claritin Tab) 10 mg DAILY PO 06/08/17 08:00 07/08/17 08:59 06/10/17 08:35 10 MG Lisinopril (Zestril Tab) 30 mg DAILY PO 06/08/17 08:00 07/08/17 08:59 06/10/17 08:35 30 MG Doxycycline Hyclate (Vibramycin Cap) 100 mg BID PO 06/08/17 20:00 06/15/17 19:59 06/10/17 20:27 100 MG Hyoscyamine Sulfate (Levsin Tab) 0.125 mg BID PRN PO 06/08/17 04:45 07/08/17 03:44 Ceftriaxone Sodium 1 gm/ Dextrose 50 ml @ 100 mls/hr Q24H IV 06/08/17 21:00 06/15/17 20:59 06/10/17 20:27 100 MLS/HR Heparin Sodium (Porcine) (Heparin Sq 5000 Unit/0.5ml) 5,000 unit Q12 SQ 06/10/17 09:00 07/10/17 08:59 06/10/17 20:34 5,000 UNIT Prednisone (PredniSONE TAB) 40 mg DAILY PO 06/10/17 08:00 07/10/17 07:59 06/10/17 08:34 40 MG Guaifenesin (Robitussin Sugar Free Syrup) 100 mg QID PO 06/10/17 17:00 07/10/17 16:59 06/10/17 20:27 100 MG
[2017-06-11 00:04] VITALS: BP 134/84; PULSE 89; TEMP 36.5; O2SAT 99
[2017-06-11 05:57] LABS: HEMATOCRIT 30.7 % (37-47); MEAN CELL VOLUME 88.2 fL (80-100); MEAN CORPUSCULAR HEMOGLOBIN 29.6 pg (25-34); MEAN CORPUSCULAR HGB CONC 33.6 g/dl (32-36); MEAN PLATELET VOLUME 7.9 fL (7.4-10.4); PLATELET COUNT 213 K/uL (130-400); RED BLOOD COUNT 3.48 M/uL (4.2-5.4); WHITE BLOOD COUNT 5.37 K/uL (4.8-10.8)
[2017-06-11 07:21] VITALS: BP 112/69; PULSE 83; TEMP 36.4; O2SAT 96
[2017-06-11] MEDS: FLUTICASONE PROPIONATE NA SPR 16 GM BTL NAE SCH (09:18)
[2017-06-11] MEDS: DOXYCYCLINE HYCLATE 100 MG CAP PO SCH (09:19)
[2017-06-11] MEDS: LORATADINE 10 MG TAB PO SCH (09:19)
[2017-06-11] MEDS: ATORVASTATIN 10 MG TAB PO SCH (09:20)
[2017-06-11] MEDS: ASPIRIN 81 MG ECTAB PO SCH (09:20)
[2017-06-11] MEDS: AMLODIPINE BESYLATE 5 MG TAB PO SCH (09:20)
[2017-06-11] MEDS: LISINOPRIL 10 MG TAB PO SCH (09:21)
[2017-06-11] MEDS: GUAIFENESIN SUGAR FREE 100 MG/5 ML UDC PO SCH ×2 (09:21→12:54)
[2017-06-11] MEDS: HEPARIN SOD 5000 UNIT/0.5 ML CARP SQ SCH (09:31)
--- NOTE | 2017-06-11 13:42 | Progress Note ---
Medicine Progress Note Date & Time of Visit: Jun 11, 2017 at 13:42 . Subjective Doing well. No fever. Chest congestion improved. No SOB. No chest pain. No nausea, vomiting, diarrhea. . Objective Last 8 Hrs Date Time Temp Pulse Resp B/P (MAP) Pulse Ox O2 Delivery O2 Flow Rate FiO2 06/11/17 09:30 Room Air 06/11/17 07:21 36.4 83 18 112/69 (83) 96 Room Air Physical Exam: General- no distress Lungs- essentially clear Heart- RRR Abdomen- + BS, soft, nontender Extremities- no pretibial edema or calf tenderness Neuro- alert; diffuse motor weakness . Laboratory Results: Last 24 Hours Test 06/11/17 05:33 White Blood Count 5.37 K/uL Red Blood Count 3.48 M/uL Hemoglobin 10.3 g/dL Hematocrit 30.7 % Mean Corpuscular Volume 88.2 fL Mean Corpuscular Hemoglobin 29.6 pg Mean Corpuscular Hemoglobin Concent 33.6 g/dl RDW Standard Deviation 49.6 fL RDW Coefficient of Variation 15.4 % Platelet Count 213 K/uL Mean Platelet Volume 7.9 fL Assessment & Plan PNEUMONIA CT of chest demonstrated bilateral lower lobe infiltrates. Receiving doxycycline, ceftriaxone, and steroids with improvement. May be at risk for aspiration due to underlying inclusion body myositis. CERTIFIED COURT INTERPRETER consulted for bedside swallowing evaluation- no overt aspiration. Discharge on doxycycline, cefdinir, prednisone to complete 7 day course of therapy. Repeat chest x-ray showed be obtained in 4-6 weeks. HYPERTENSION Continue amlodipine and lisinopril. INCLUSION BODY MYOSITIS Supportive care. VTE PROPHYLAXIS SQ heparin. DISPOSITION Discharge to home. Family Medicine follow-up with Dr. Colon. . Procedures: CT chest IV meds . Current Inpatient Medications: Current Inpatient Medications Medications (Trade) Dose Ordered Sig/Kirsty Route Start Time Stop Time Status Last Admin Dose Admin Ioversol (Optiray 320) 100 ml UD PRN IV 06/08/17 01:45 06/12/17 01:44 Acetaminophen (Tylenol Tab) 650 mg Q4H PRN PO 06/08/17 03:45 07/08/17 03:44 Ondansetron HCl (Zofran Inj) 4 mg Q6H PRN IV 06/08/17 03:45 07/08/17 03:44 Amlodipine Besylate (Norvasc Tab) 5 mg DAILY PO 06/08/17 08:00 07/08/17 08:59 06/11/17 09:20 5 MG Aspirin (Ecotrin Tab) 81 mg DAILY PO 06/08/17 08:00 07/08/17 08:59 06/11/17 09:20 81 MG Atorvastatin Calcium (Lipitor Tab) 10 mg DAILY PO 06/08/17 08:00 07/08/17 08:59 06/11/17 09:20 10 MG Benzonatate (Tessalon Perles Cap) 100 mg TID PRN PO 06/08/17 03:45 07/08/17 03:44 Fluticasone Propionate (Flonase Nasal [place]) 2 sprays DAILY CINTHIA 06/08/17 08:00 07/08/17 08:59 06/11/17 09:18 2 SPRAYS Hydrocodone Bit/ Homatropine Methylb (Hycodan Syrup) 5 ml Q6H PRN PO 06/08/17 03:45 06/22/17 03:44 Loratadine (Claritin Tab) 10 mg DAILY PO 06/08/17 08:00 07/08/17 08:59 06/11/17 09:19 10 MG Lisinopril (Zestril Tab) 30 mg DAILY PO 06/08/17 08:00 07/08/17 08:59 06/11/17 09:21 30 MG Doxycycline Hyclate (Vibramycin Cap) 100 mg BID PO 06/08/17 20:00 06/15/17 19:59 06/11/17 09:19 100 MG Hyoscyamine Sulfate (Levsin Tab) 0.125 mg BID PRN PO 06/08/17 04:45 07/08/17 03:44 Ceftriaxone Sodium 1 gm/ Dextrose 50 ml @ 100 mls/hr Q24H IV 06/08/17 21:00 06/15/17 20:59 06/10/17 20:27 100 MLS/HR Heparin Sodium (Porcine) (Heparin Sq 5000 Unit/0.5ml) 5,000 unit Q12 SQ 06/10/17 09:00 07/10/17 08:59 06/11/17 09:31 5,000 UNIT Prednisone (PredniSONE TAB) 40 mg DAILY PO 06/10/17 08:00 07/10/17 07:59 06/11/17 09:19 40 MG Guaifenesin (Robitussin Sugar Free Syrup) 100 mg QID PO 06/10/17 17:00 07/10/17 16:59 06/11/17 12:54 100 MG
[2017-06-11] MEDS ORDERED: RBTUDL5 PO (14:03)
[2017-06-11] MEDS ORDERED: CEFD300C2 PO (14:03)
[2017-06-11] MEDS ORDERED: DOXY-300 PO (14:03)
[2017-06-11] MEDS ORDERED: PRED10TA PO (14:03)
--- NOTE | 2017-06-11 14:10 | Discharge Instructions ---
Discharge Instructions Date of Service Jun 11, 2017. Admission Reason for Admission: pneumonia Discharge Discharge Diagnosis / Problem: pneumonia Discharge Goals Goal(s): Improve disease control Activity Recommendations Activity Limitations: resume your previous activity . Instructions / Follow-Up Instructions / Follow-Up FOLLOW-UP APPOINTMENTS: FAMILY MEDICINE 06/14/2017 11:00 AM Keke Colon, DO MEDICATION CHANGES: Stop levofloxacin (Levaquin). doxycycline 100 mg twice a day until gone. cefdinir (Omnicef) 300 mg twice a day until gone prednisone 40 mg once a day until gone Guaifenesin (plain Robitussin) 1 tsp every 6 hours as needed for chest congestion OTHER INSTRUCTIONS: Do breathing exercises a few times a day. Speech therapy recommendations: soft ground or cut diet small sips small bites take your time when eating or drinking Seek medical attention if you have: * temperature above 101 * chest pain or trouble breathing * abdominal pain, nausea, vomiting * diarrhea, dark stools or bloody stools * any unanswered questions or concerns Call 911 if symptoms are severe. Call if you have any questions or problems. My cell # is [phone]. You can also reach a [facility] hospitalist on duty at [facility] 24 hours a day by calling [phone]. Please take good care of yourself. Yordy Javier . Current Hospital Diet Patient's current hospital diet: Regular Diet Discharge Diet Recommended Diet: AHA Diet (Heart Healthy) Diet Texture: Mechanical Soft (ground) Pending Studies Studies pending at discharge: no Medical Emergencies . Who to Call and When: Medical Emergencies: If at any time you feel your situation is an emergency, please call 911 immediately. . Non-Emergent Contact Non-Emergency issues call your: Primary Care Provider, Hospital Doctor . . "Provider Documentation" section prepared by Yordy Javier. . VTE Core Measure Inpt VTE Proph given/why not?: Unfractionated heparin SQ
[2017-06-11 15:04] VITALS: BP 112/69; PULSE 83; TEMP 36.4; O2SAT 96
--- NOTE | 2017-06-11 21:14 | Discharge Summary ---
Discharge Summary Date of Service Jun 11, 2017. Discharge Summary Admission Date: Jun 08, 2017 at 04:36 Discharge Date: Jun 11, 2017 Discharge Disposition: Home Principal Diagnosis: bilateral lower lobe pneumonia . Secondary Diagnoses/Problems: Chronic Medical Problems: (1) Hypertension Status: Chronic (2) Inclusion body myositis Status: Chronic (3) Osteoporosis Status: Chronic Surgical Problems: (1) History of hysterectomy Status: Chronic . Procedures: CT chest IV meds . Pending Studies/Follow-Up: Please obtain f/u chest x-ray in 4-6 weeks re: pneumonia. . Medication Reconciliation New Medications: Cefdinir (Omnicef) 300 Mg Cap 300 MG PO BID, #7 CAP Doxycycline (Monohydrate) (Doxycycline) 100 Mg Cap 100 MG PO BID, #7 CAP Guaifenesin (Robitussin) 100 Mg/5 Ml Rola 1 TSP PO QID PRN for chest congestion, #1 BTL No prescription necessary. Prednisone Tab (Prednisone) 10 Mg Tab 40 MG PO DAILY, #12 TAB Continued Medications: Amlodipine (Norvasc) 5 Mg Tab 5 MG PO DAILY, TAB Aspirin (Ecotrin Low Strength) 81 Mg Tab 81 MG PO DAILY, 3 Refills Atorvastatin (Lipitor) 10 Mg Tab 10 MG PO DAILY, TAB Benzonatate (Tessalon Perles) 100 Mg Cap 1 CAP PO TID PRN for Cough Calcium Phosphate-Cholecalcife (Caltrate Gummy Bites) 1 Chw Chw 2 TABS PO DAILY Fluticasone Propionate (Nasal) (Flonase Allergy Relief) 50 Mcg/Act Spr 2 SPRAYS CINTHIA DAILY Hydrocodone W/ Homatropine (Hycodan 5/1.5MG 5 Ml) 1 Syp Syp 5 ML PO Q6H PRN for Cough Hyoscyamine Sulfate (Hyoscyamine Sulfate) 0.125 Mg Tab 0.125 MG PO BID PRN for UNDECIDED Lisinopril (Prinivil) 30 Mg Tab 30 MG PO DAILY, TAB Loratadine (Claritin) 10 Mg Tab 10 MG PO DAILY, TAB Discontinued Medications: Levofloxacin (Levaquin) 500 Mg Tab 500 MG PO DAILY for 10 Days Admission Information HPI (per Admitting provider): She is a 76-year-old female with significant past medical history including 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 Apparently, has been complaining of shortness of breath with cough for the last 6 weeks. She has had 4 courses of different antibiotics for the same, but her breathing has been getting worse due to progressive muscle weakness secondary to inclusion body myositis. She denies to any fever, any chills. She does not have any chest pain, any palpitation. No abdominal pain, nausea, no vomiting and does not have any problem with urine and/or bowel habit. In the Emergency Room, she was afebrile, tachycardia of 115 and blood pressure is 158/83. She did have normal white count and the chest x-ray and CAT scan did not show any significant findings except low lung volume, but given her progressive shortness of breath and low saturation she was admitted to medical floor for continuation of care. . Physical Exam (per Admitting): GENERAL: On examination in the Emergency Room, she is a thin built lady with moderate shortness of breath at rest. No other acute distress. VITAL SIGNS: Temperature 36.9, pulse is 115, blood pressure 158/83, saturation 97%. HEENT: Unremarkable. NECK: Supple, no JVD, no bruit. CHEST: Decreased breath sounds with fine crackles at the bases. HEART: S1, S2 regular, no murmur. ABDOMEN: Soft, benign, nontender, no organomegaly. Bowel sounds present. EXTREMITIES: Trace edema bilaterally. MUSCULOSKELETAL SYSTEM: No acute arthritis involving any joint. CENTRAL NERVOUS SYSTEM: She was alert, awake, oriented x3. She has weakness all over her upper extremity, may have 1-2 power out of 5 and lower extremity 1/5. She does not have any sensory impairment. . Hospital Course PNEUMONIA CT of chest demonstrated bilateral lower lobe infiltrates. Receiving doxycycline, ceftriaxone, and steroids with improvement. May be at risk for aspiration due to underlying inclusion body myositis. MACHINE PLASTER MIXER consulted for bedside swallowing evaluation- no overt aspiration. Discharge on doxycycline, cefdinir, prednisone to complete 7 day course of therapy. Repeat chest x-ray showed be obtained in 4-6 weeks. HYPERTENSION Continue amlodipine and lisinopril. INCLUSION BODY MYOSITIS Supportive care. VTE PROPHYLAXIS SQ heparin. DISPOSITION Discharge to home. Family Medicine follow-up with Dr. Colon. . Total time spent on discharge = 40 min. This includes examination of the patient, discharge planning, medication reconciliation, and communication with other providers. . Discharge Instructions Date of Service Jun 11, 2017. Admission Reason for Admission: pneumonia Discharge Discharge Diagnosis / Problem: pneumonia Discharge Goals Goal(s): Improve disease control Activity Recommendations Activity Limitations: resume your previous activity . Instructions / Follow-Up Instructions / Follow-Up FOLLOW-UP APPOINTMENTS: FAMILY MEDICINE 06/14/2017 11:00 AM Keke Colon, DO MEDICATION CHANGES: Stop levofloxacin (Levaquin). doxycycline 100 mg twice a day until gone. cefdinir (Omnicef) 300 mg twice a day until gone prednisone 40 mg once a day until gone Guaifenesin (plain Robitussin) 1 tsp every 6 hours as needed for chest congestion OTHER INSTRUCTIONS: Do breathing exercises a few times a day. Speech therapy recommendations: soft ground or cut diet small sips small bites take your time when eating or drinking Seek medical attention if you have: * temperature above 101 * chest pain or trouble breathing * abdominal pain, nausea, vomiting * diarrhea, dark stools or bloody stools * any unanswered questions or concerns Call 911 if symptoms are severe. Call if you have any questions or problems. My cell # is [phone]. You can also reach a [facility] hospitalist on duty at [facility] 24 hours a day by calling [phone]. Please take good care of yourself. Yordy Javier . Current Hospital Diet Patient's current hospital diet: Regular Diet Discharge Diet Recommended Diet: AHA Diet (Heart Healthy) Diet Texture: Mechanical Soft (ground) Pending Studies Studies pending at discharge: no Medical Emergencies . Who to Call and When: Medical Emergencies: If at any time you feel your situation is an emergency, please call 911 immediately. . Non-Emergent Contact Non-Emergency issues call your: Primary Care Provider, Hospital Doctor . . "Provider Documentation" section prepared by Yordy Javier. . VTE Core Measure Inpt VTE Proph given/why not?: Unfractionated heparin SQ . Additional Copies To Keke Colon D.O.
--- NOTE | 2017-06-13 08:36 | EDITING REQUIRED CODING QUERY ---
CODING QUERY To promote full compliance with coding requirements relating to patient care, provider participation is requested in all cases of children's counselor uncertainty. Please assist us with the question(s) below: Coding Question(s): Patient admitted with pneumonia. CT Chest demonstrated bilateral lower lobe infiltrates . D/S/progress notes state "Patient may be at risk of aspiration due to underlying inclusion body myositis. Please document , if known or suspected, the etiology of pneumonia and/or causative organism. Thanks for your help! Teddy Aguirre VEGETABLE TESTER [facility] Physician's Response(s): Etiology uncertain. Causative organism unknown. Principal Diagnosis: "_that condition established after study, to be chiefly responsible for occasioning the admission of the patient to the hospital for care." Co-Existing Principal Diagnosis: "_when two or more diagnoses equally meet the criteria for principal diagnosis as determined by the circumstances of admission, diagnostic work up, and/or therapy provided, and the Alphabetic Index, Tabular List, or another coding guideline does not provide sequencing direction, any one of the diagnoses may be sequenced first." "When the physician has documented what appears to be a current diagnosis in the body of the record, but has not included the diagnosis in the final diagnostic statement, the physician should be asked whether the diagnosis should be added." (Source [facility] 2 QTR90. p3-4)
== END 2017-06-11 15:36 | disposition home or self-care (01) | DRG 195 ==
LOC: C.EDB 00:43 → EDBEDREQ 03:46 → ENRESERV 04:12 → C.4E 04:36
PROVIDERS: ADMIT Internal Medicine; ATTEND Hospitalist
DX: J18.9 Pneumonia, unspecified organism (principal); M81.0 Age-related osteoporosis without current pathological fracture; I10 Essential (primary) hypertension; K75.81 Nonalcoholic steatohepatitis (NASH); E78.5 Hyperlipidemia, unspecified; Z87.891 Personal history of nicotine dependence; Z88.2 Allergy status to sulfonamides; G72.41 Inclusion body myositis [IBM]

== ENCOUNTER 2017-07-18 19:56 | Emergency (ER) | payer OTHER ==
[~2017-07-18] VITALS: Ht 160 cm; Wt 52.0 kg
[~2017-07-18 19:56] MED LIST changes: +ASPI-428 PO; +ATOR10TA88 PO; +BENZ100C84 PO; +CALC1CHW32 PO; -CHOL100027 PO; +CLR10 PO; +DOXY-300 PO; +FLUT0.15 NAE; +HYDR5SYP11 PO; -LEVO-366 PO; +LISI-526 PO; -LISI-725 PO; +PRED10TA PO; +RBTUDL5 PO
[2017-07-18 20:50] VITALS: Ht 160 cm; Wt 52.0 kg
[2017-07-18] MEDS ORDERED: CEFTRIAXONE SOD INJ 1 GM ADDVIAL IV STA (21:08)
[2017-07-18] MEDS ORDERED: SODIUM CHLORIDE 0.9% 500ML 500 ML IV STA (21:08)
[2017-07-18 22:31] LABS: BASO % 0.6 %; BASO ABS # 0.04 K/uL (0-0.2); COMPLETE YES; EOS % 0.8 %; HEMATOCRIT 31.1 % (37-47); IG% 0.2 %; LYMPH % 39.4 %; LYMPH ABS # 2.43 K/uL (1.2-3.4); MEAN CELL VOLUME 89.1 fL (80-100); MEAN CORPUSCULAR HEMOGLOBIN 29.5 pg (25-34); MEAN CORPUSCULAR HGB CONC 33.1 g/dl (32-36); MEAN PLATELET VOLUME 8.3 fL (7.4-10.4); PLATELET COUNT 156 K/uL (130-400); RED BLOOD COUNT 3.49 M/uL (4.2-5.4); WHITE BLOOD COUNT 6.16 K/uL (4.8-10.8)
[2017-07-18 22:55] LABS: CALCIUM 8.8 mg/dl (8.5-10.1); CREATININE 0.2 mg/dl (0.60-1.20); POTASSIUM 4.7 mmol/L (3.5-5.1)
[2017-07-18] MEDS ORDERED: CEPHALEXIN 500MG HOME PACK 1 EA BTL PO ONE (23:15)
[2017-07-18] MEDS ORDERED: BACITRACIN OINT 15 GM TUBE EXT ONE (23:15)
--- NOTE | 2017-07-18 23:15 | EMERGENCY ROOM VISIT NOTE ---
ED Visit Note First contact with patient: 23:14 I saw this patient in conjunction with Jason Duran PA-C. I agree with his decision making and treatment plan.
[2017-07-18] MEDS ORDERED: CEPH500C PO (23:16)
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
[2017-07-19 00:07] VITALS: BP 118/84; PULSE 105; TEMP 37.8; O2SAT 97
== END 2017-07-19 00:08 | disposition home or self-care (01) ==
LOC: C.EDB 19:57 → C.EDD 07-19 00:08
DX: L03.115 Cellulitis of right lower limb (principal); T24.211A Burn of second degree of right thigh, initial encounter; G72.41 Inclusion body myositis [IBM]; I10 Essential (primary) hypertension; M81.0 Age-related osteoporosis without current pathological fracture; Z79.82 Long term (current) use of aspirin; Z79.899 Other long term (current) drug therapy; Z99.3 Dependence on wheelchair; Z81.2 Family history of tobacco abuse and dependence; X10.0XXA Contact with hot drinks, initial encounter

== ENCOUNTER 2017-10-29 11:42 | Emergency (ER) | payer OTHER ==
[~2017-10-29] VITALS: Ht 157.5 cm; Wt 50.0 kg
[~2017-10-29 11:42] MED LIST changes: -AMLO-110 PO; +AMLO5TAB3 PO; -ASPI-428 PO; +ATOR10TA82 PO; -ATOR10TA88 PO; -BENZ100C84 PO; -CALC1CHW32 PO; -CLR10 PO; -DOXY-300 PO; -FLUT0.15 NAE; -HYDR5SYP11 PO; -HYOS0.1271 PO; -PRED10TA PO; -RBTUDL5 PO
[2017-10-29 11:47] VITALS: TEMP 36.5; Ht 157.5 cm; Wt 50.0 kg
[2017-10-29] MEDS ORDERED: AMOX250S5 PO (11:56)
--- NOTE | 2017-10-29 13:52 | DIAGNOSTIC IMAGING REPORT ---
CHEST 2 VIEWS ROUTINE CLINICAL HISTORY: Cough, weakness dyspnea COMPARISON STUDY: 06/08/2017 FINDINGS: Moderate emphysematous change. Slight increase in basilar interstitial markings bilaterally. Stable pre-existing bibasilar atelectasis. Upper lungs are clear. IMPRESSION: Emphysematous change. Potential developing bibasilar interstitial pneumonitis. The above report was generated using voice recognition software. It may contain grammatical, syntax or spelling errors. Electronically signed by: Daquan Street M.D. 10/29/2017 1:50 PM Dictated Date/Time: 10/29/2017 1:49 PM
[2017-10-29 14:16] VITALS: BP 132/73; PULSE 93; O2SAT 97
[2017-10-29] MEDS ORDERED: CEFD300C2 PO (14:52)
[2017-10-29] MEDS ORDERED: DOXY100C PO (14:52)
--- NOTE | 2017-10-29 17:39 | EMERGENCY ROOM VISIT NOTE ---
History First contact with patient: 12:34 Chief Complaint: OTHER COMPLAINT Stated Complaint: CHEST COLD, UNABLE TO COUGH History of Present Illness The patient is a 77 year old female who presents to the Emergency Room with complaints of a chest cold, weakness and loss of appetite. The patient reports a history of inclusion body myositis, and is wheelchair-bound. The patient reports that she does not have the ability to cough, and has had pneumonia in the past. She has had a cold for the past 10 days. She was seen at a [facility] clinic on 10/23/17 and provided a prescription for prednisone and Augmentin. The patient reports that her symptoms are now worsening. She denies any headache, chest pain, shortness of breath, back pain, urinary symptoms or diarrhea. She denies any discomfort on my exam. Review of Systems 10 system review was performed and was negative except for pertinent positives and negatives as indicated in history of present illness Past Medical/Surgical History Medical Problems: (1) Hypertension (2) Inclusion body myositis (3) Osteoporosis Surgical Problems: (1) History of hysterectomy Family History Unknown Social History Smoking Status: Former Smoker Alcohol Use: none Marital Status: Occupation Status: retired Current/Historical Medications Scheduled Amoxicillin (Amoxil), 10 ML PO BID Aspirin (Ecotrin Low Strength), 81 MG PO DAILY Cefdinir (Omnicef), 300 MG PO Q12H Doxycycline Hyclate (Vibramycin), 100 MG PO BID Physical Exam Vital Signs Date Time Temp Pulse Resp B/P (MAP) Pulse Ox O2 Delivery O2 Flow Rate FiO2 10/29/17 14:16 93 18 132/73 97 Room Air 10/29/17 11:47 36.5 89 20 149/85 100 Room Air Physical Exam CONSTITUTIONAL: Healthy and well nourished. Alert and oriented X 3 with positive affect. Patient does not appear in any acute distress, nor does she appear acutely ill or toxic. HEENT: Normocephalic, atraumatic. Pupils equal, round and reactive. Ears and nares are clear. NECK: Full active range of motion without discomfort. No JVD or carotid bruits. RESPIRATORY: Clear to auscultation bilaterally with no wheezing, crackles, rhonchi or stridor. CARDIOVASCULAR: Regular rate and rhythm with no murmurs, rubs or gallops. GASTROINTESTINAL: Bowel sounds present in all quadrants. Soft and nontender to palpation. MUSCULOSKELETAL: The patient has diffuse muscular atrophy and is sitting upright in a wheelchair. INTEGUMENTARY: No rash or other significant dermatologic conditions noted. NEUROLOGIC: No obvious focal neurologic deficits noted. Medical Decision & Procedures ER Provider Diagnostic Interpretation: My interpretation of a two-view chest x-ray shows potentially basilar interstitial findings consistent with pneumonitis. Radiologist report is as follows: CHEST 2 VIEWS ROUTINE CLINICAL HISTORY: Cough, weakness dyspnea COMPARISON STUDY: 06/08/2017 FINDINGS: Moderate emphysematous change. Slight increase in basilar interstitial markings bilaterally. Stable pre-existing bibasilar atelectasis. Upper lungs are clear. IMPRESSION: Emphysematous change. Potential developing bibasilar interstitial pneumonitis. ED Course Patient history and physical exam were performed. Nurse's notes were reviewed. Vital signs were reviewed and were grossly normal, including an O2 saturation of 100% on room air. Respiratory rate and heart rate were also normal. Chest x -ray shows possibility of a developing bibasilar interstitial pneumonitis. Findings were discussed with Dr. Viramontes, ED attending physician, who also evaluated the patient. The case was then further discussed with the patient's PCP, Dr. Keke Colon. I did review prior medical records to show that the patient was treated with doxycycline and Omnicef after her last hospital admission for pneumonia. Dr. Viramontes and Dr. Colon are in agreement with repeat treatment using these antibiotics. Dr. Colon will also prescribe a home nebulizer with albuterol, and refer her to pulmonology. They will call the patient tomorrow to set up a follow up appointment. The patient was instructed to return to the emergency department for any progressively worsening symptoms. Medical Decision Medication Reconcilliation Current Medication List: was personally reviewed by me Blood Pressure Screening Patient's blood pressure: Normal blood pressure Impression Primary Impression: Bibasilar interstitial pneumonitis Additional Impression: Inclusion body myositis Departure Information Prescriptions Cefdinir (OMNICEF) 300 Mg Cap 300 MG PO Q12H for 10 Days, #20 CAP Prov: Bill Duran PA 10/29/17 Doxycycline Hyclate (VIBRAMYCIN) 100 Mg Cap 100 MG PO BID for 10 Days, #20 CAP Prov: Bill Duran PA 10/29/17 Referrals Keke Colon D.O. (PCP) Patient Instructions My [facility] Health Problem Qualifiers
--- NOTE | 2017-10-30 10:44 | EMERGENCY ROOM VISIT NOTE ---
ED Visit Note First contact with patient: 12:34 The patient was seen and examined with Bill Duran PA-C. I agree with the history, physical and findings. Please see the note for disposition and details.
[2017-10-31] MEDS ORDERED: ASPI-428 PO (01:51)
[2017-11-04] MEDS ORDERED: VNTHFA/IN INH (12:48)
[2017-11-04] MEDS ORDERED: AMOX1TAB43 PO (12:48)
[2017-11-04] MEDS ORDERED: TMFUDL30 PO (12:48)
[2017-11-04] MEDS ORDERED: LCTX PO (12:51)
== END 2017-10-29 14:57 | disposition home or self-care (01) ==
LOC: C.EDB 11:45
DX: J84.89 Other specified interstitial pulmonary diseases (principal); G72.41 Inclusion body myositis [IBM]; I10 Essential (primary) hypertension; M81.0 Age-related osteoporosis without current pathological fracture; Z87.891 Personal history of nicotine dependence; Z90.710 Acquired absence of both cervix and uterus; Z79.82 Long term (current) use of aspirin

== ENCOUNTER 2017-10-31 16:32 | Inpatient (IN) | payer OTHER ==
[~2017-10-31] VITALS: Ht 157.5 cm; Wt 46.3 kg
[~2017-10-31 16:32] MED LIST changes: -AMLO5TAB3 PO; +AMOX250S5 PO; +ASPI-428 PO; -ATOR10TA82 PO; +CEFD300C2 PO; +DOXY100C PO; -LISI-526 PO
[2017-10-31] MEDS ORDERED: SODIUM CHLORIDE 0.9% 500ML 500 ML IV STA (18:41)
--- NOTE | 2017-10-31 18:57 | DIAGNOSTIC IMAGING REPORT ---
CHEST ONE VIEW PORTABLE CLINICAL HISTORY: Pneumonia COMPARISON STUDY: October 29, 2017 FINDINGS: Examination is significantly limited from a technical standpoint. The patient is rotated. There is elevation of the left hemidiaphragm. There are persistent nonspecific nodular airspace opacities within the left midlung zone. Splenomegaly is suspected.[ IMPRESSION: 1. Technically limited study 2. Suspected splenomegaly 3. Elevation left hemidiaphragm 4. Subtle nodular airspace opacities with left midlung zone. Given the clinical history, this could represent an early pneumonitis. Clinical and radiographic follow-up is recommended. Electronically signed by: Kalyan Lennon M.D. 10/31/2017 6:55 PM Dictated Date/Time: 10/31/2017 6:54 PM
[2017-10-31 19:54] LABS: BASO % 0.4 %; BASO ABS # 0.02 K/uL (0-0.2); EOS % 1.2 %; EOS ABS # 0.06 K/uL (0-0.5); HEMATOCRIT 32.9 % (37-47); HEMOGLOBIN 10.9 g/dL (12.0-16.0); IG# 0.09 K/uL (0.00-0.02); LYMPH % 35.3 %; LYMPH ABS # 1.82 K/uL (1.2-3.4); MEAN CELL VOLUME 89.6 fL (80-100); MEAN CORPUSCULAR HEMOGLOBIN 29.7 pg (25-34); MEAN CORPUSCULAR HGB CONC 33.1 g/dl (32-36); MEAN PLATELET VOLUME 8.1 fL (7.4-10.4); MONO % 0.6 %; MONO ABS # 0.03 K/uL (0.11-0.59); NEUT % 60.8 %; NEUT ABS # 3.14 K/uL (1.4-6.5); PLATELET COUNT 181 K/uL (130-400); RED CELL DISTRIBUTION WIDTH CV 15.8 % (11.5-14.5); RED CELL DISTRIBUTION WIDTH SD 50.9 fL (36.4-46.3); WHITE BLOOD COUNT 5.16 K/uL (4.8-10.8)
[2017-10-31 20:04] LABS: INR 1.2 (0.9-1.1); PTT PATIENT 24.3 SECONDS (21.0-31.0)
--- NOTE | 2017-10-31 20:09 | EMERGENCY ROOM VISIT NOTE ---
History Report prepared by Libert[employer]: Vince Queen Under the Supervision of: Dr. Claudio Valencia M.D. First contact with patient: 18:29 Chief Complaint: DEHYDRATION Stated Complaint: DEHYDRATION- PHYSICIAN REFERRED Nursing Triage Summary: Patient is on abx for pneumonia and was seen by PCP and sent here for weakness, dehydration Currently on doxycycline and omnicef History of Present Illness The patient is a 77 year old female who presents to the Emergency Room with complaints of constant weakness beginning 2 weeks ago. The patient states she has not been feeling well for the past 2 weeks. She reports her discomfort started with a sorethroat. The patient notes she was in [facility] and given amoxicillin for 10 days and was given prednisone for 5 days. She states she has a history of inclusion cell myositis. The patient reports it is hard for her to sleep because she cannot cough up the mucus. She notes it is also hard for her to eat because it is hard to swallow. The patient states she was evaluated two days ago for cold symptoms. She reports she has been also experiencing intermittent fevers. The patient notes she was evaluated by her PCP today and was told to come to the ED because she was dehydrated and had a fever of 100 degree with an increased heart rate. She states she was going to be placed on prednisone, but she came to the ED instead because she was so weak. The patient denies diarrhea. Source of History: patient Onset: 2 weeks ago Position: other (global) Quality: other (weakness) Timing: constant Associated Symptoms: + fevers, + sorethroat, No diarrhea Note: Associated symptoms: dehydrated, decreased appetite, increased heart rate Review of Systems See HPI for pertinent positives & negatives. A total of 10 systems reviewed and were otherwise negative. Past Medical & Surgical Medical Problems: (1) Hypertension (2) Inclusion body myositis (3) Osteoporosis Surgical Problems: (1) History of hysterectomy Family History Cancer Diabetes mellitus Heart disease Hypertension Social History Smoking Status: Never Smoker Alcohol Use: none Marital Status: Occupation Status: retired Current/Historical Medications Scheduled Aspirin (Ecotrin Low Strength), 81 MG PO DAILY Cefdinir (Omnicef), 300 MG PO Q12H Doxycycline Hyclate (Vibramycin), 100 MG PO BID Allergies Coded Allergies: Sulfa Antibiotics (Verified Allergy, Unknown, UNKNOWN, 10/29/17) Physical Exam Vital Signs Date Time Temp Pulse Resp B/P (MAP) Pulse Ox O2 Delivery O2 Flow Rate FiO2 10/31/17 16:55 37.2 102 16 142/78 96 Room Air Physical Exam Constitutional: Vital signs reviewed. Eyes: Pupils are equal round reactive to light. Conjunctiva are noninjected. ENT: Pharynx is clear without erythema or exudate. Mucous membranes are moist. Neck supple without meningeal signs. Respiratory: Clear to auscultation bilaterally. Breath sounds are equal bilaterally. Cardiovascular: Regular rate and rhythm. No rubs or gallops. GI: Soft, nondistended and nontender. Bowel sounds are present. Musculoskeletal: No peripheral edema. No lower extremity tenderness. No CVA tenderness. Integumentary: No cyanosis. Neurological: The patient is awake and alert. Wheelchair bound. Psychiatric: Normal affect. Medical Decision & Procedures ER Provider Diagnostic Interpretation: X-ray results as stated below per interpretation by me and the radiologist: CHEST ONE VIEW PORTABLE CLINICAL HISTORY: Pneumonia COMPARISON STUDY: October 29, 2017 FINDINGS: Examination is significantly limited from a technical standpoint. The patient is rotated. There is elevation of the left hemidiaphragm. There are persistent nonspecific nodular airspace opacities within the left midlung zone. Splenomegaly is suspected.[ IMPRESSION: 1. Technically limited study 2. Suspected splenomegaly 3. Elevation left hemidiaphragm 4. Subtle nodular airspace opacities with left midlung zone. Given the clinical history, this could represent an early pneumonitis. Clinical and radiographic follow-up is recommended. Electronically signed by: Kalyan Lennon M.D. 10/31/2017 6:55 PM Dictated Date/Time: 10/31/2017 6:54 PM Laboratory Results 10/31/17 19:31 Red Blood Count 3.67, Mean Corpuscular Volume 89.6, Mean Corpuscular Hemoglobin 29.7, Mean Corpuscular Hemoglobin Concent 33.1, Mean Platelet Volume 8.1, Neutrophils (%) (Auto) 60.8, Lymphocytes (%) (Auto) 35.3, Monocytes (%) (Auto) 0.6, Eosinophils (%) (Auto) 1.2, Basophils (%) (Auto) 0.4, Neutrophils # (Auto) 3.14, Lymphocytes # (Auto) 1.82, Monocytes # (Auto) 0.03, Eosinophils # (Auto) 0.06, Basophils # (Auto) 0.02 Test 10/31/17 19:31 10/31/17 19:51 10/31/17 19:53 White Blood Count 5.16 K/uL (4.8-10.8) Red Blood Count 3.67 M/uL (4.2-5.4) Hemoglobin 10.9 g/dL (12.0-16.0) Hematocrit 32.9 % (37-47) Mean Corpuscular Volume 89.6 fL (80-100) Mean Corpuscular Hemoglobin 29.7 pg (25-34) Mean Corpuscular Hemoglobin Concent 33.1 g/dl (32-36) Platelet Count 181 K/uL (130-400) Mean Platelet Volume 8.1 fL (7.4-10.4) Neutrophils (%) (Auto) 60.8 % Lymphocytes (%) (Auto) 35.3 % Monocytes (%) (Auto) 0.6 % Eosinophils (%) (Auto) 1.2 % Basophils (%) (Auto) 0.4 % Neutrophils # (Auto) 3.14 K/uL (1.4-6.5) Lymphocytes # (Auto) 1.82 K/uL (1.2-3.4) Monocytes # (Auto) 0.03 K/uL (0.11-0.59) Eosinophils # (Auto) 0.06 K/uL (0-0.5) Basophils # (Auto) 0.02 K/uL (0-0.2) RDW Standard Deviation 50.9 fL (36.4-46.3) RDW Coefficient of Variation 15.8 % (11.5-14.5) Immature Granulocyte % (Auto) 1.7 % Immature Granulocyte # (Auto) 0.09 K/uL (0.00-0.02) Prothrombin Time 12.2 SECONDS (9.0-12.0) Prothromb Time International Ratio 1.2 (0.9-1.1) Activated Partial Thromboplast Time 24.3 SECONDS (21.0-31.0) Partial Thromboplastin Ratio 0.9 Laboratory results as reviewed by me. ECG Indication: weakness Rate (beats per minute): 95 Rhythm: normal sinus Findings: Q waves (Inferior), no ectopy Change: no significant change (06/08/2017) ED Course 1833: The patient was evaluated in room B06. A complete history and physical exam was performed. 1840: Ordered Sodium Chloride 500 ml @ 999 mls/hr IV 1916: I reevaluated the patient and discussed her X-ray results with her and her family. 1944: I reevaluated the patient. The patient states she does not feel like she is able to go home because she is too weak and cannot clear any secretions. I discussed the treatment plan with her. She verbalized complete understanding. The patient will be evaluated for further management and care. 1945: I discussed the patient's case with Libia Morel. The patient will be evaluated for further management and care. Medical Decision This is a 77-year-old female presents with fevers, weakness and cold symptoms. Differential diagnosis includes pneumonia, pneumonitis, influenza, viral syndrome, dehydration, metabolic derangement. I did perform a limited focused review of portions of the patient's old chart on the electronic medical record. The patient was seen here two days ago for cold symptoms, diagnoses with pneumonitis, and given Omnicef and doxycycline. I did evaluate the patient as noted above. IV access was established. The patient was placed on a continuous child monitor. I did order and personally review the patient's 12-lead EKG and chest x-ray as described above. Her chest x-ray demonstrates some pneumonitis. I did order and review the patient's blood work as noted in the electronic medical record. The patient and her daughters did not feel the patient was well enough to go home. She was too weak. She has not been able to eat or drink very much. She has not been able to sleep. I did discuss the case with the hospitalist and case repairer. Medication Reconcilliation Current Medication List: was personally reviewed by me Blood Pressure Screening Patient's blood pressure: Elevated blood pressure Blood pressure disposition: Referred to PCP Consults Time Called: 1944 Consulting Physician: Libia Morel Returned Call: 1945 I discussed the patient's case with Libia Morel. The patient will be evaluated for further management and care. Impression Primary Impression: Pneumonitis Additional Impressions: Inclusion body myositis Generalized weakness Scribe Attestation The scribe's documentation has been prepared under my direct and personally reviewed by me in its entirety. I confirm that the note above accurately reflects all work, treatment, procedures, and medical decision making performed by me. Departure Information Dispostion Being Evaluated By Hospitalist Referrals Keke Colon D.O. (PCP) Patient Instructions My [facility] Problem Qualifiers
[2017-10-31 20:14] LABS: CALCIUM 8.9 mg/dl (8.5-10.1); CREATININE 0.19 mg/dl (0.60-1.20); POTASSIUM 4.1 mmol/L (3.5-5.1)
[2017-10-31] MEDS ORDERED: AMPICILLIN/SULBACTAM SOD INJ 3,000 MG in SODIUM CHLORIDE 0.9% 100ML 100 ML IV STA (20:59)
[2017-10-31 21:01] LABS: ALBUMIN 3.1 gm/dl (3.4-5.0); ALKALINE PHOSPHATASE 85 U/L (45-117); ALT/SGPT 24 U/L (12-78); AST/SGOT 31 U/L (15-37); TOTAL PROTEIN 7.6 gm/dl (6.4-8.2)
[2017-10-31 21:04] LABS: INFLUENZA B ANTIGEN Neg for Influ B (NEG)
[2017-10-31 21:39] LABS: INFLUENZA A PCR POS for Influ A (NEG); INFLUENZA B PCR Neg for Influ B (NEG)
[2017-10-31] MEDS ORDERED: OSELTAMIVIR PHOSPHATE 75 MG CAP PO ONE ×2 (21:51→22:07)
[2017-10-31] MEDS ORDERED: LEVALBUTEROL/IPRATROPIUM NEB INH STA (23:21)
[2017-10-31] MEDS ORDERED: ACETAMINOPHEN 325 MG TAB PO PRN (23:30)
[2017-10-31] MEDS ORDERED: OPTIRAY 320 IV PRN (23:30)
[2017-10-31] MEDS ORDERED: PROCHLORPERAZINE INJ 5 MG in SYRINGE 4 ML IV PRN (23:30)
[2017-10-31] MEDS ORDERED: SODIUM CHLORIDE 0.9% 1000ML 1,000 ML IV ONE (23:30)
[2017-10-31] MEDS ORDERED: LEVALBUTEROL/IPRATROPIUM NEB INH PRN (23:30)
[2017-10-31] MEDS ORDERED: TRAMADOL HCL 50 MG TAB PO PRN (23:30)
[2017-11-01] VITALS (7 sets, daily range): BP systolic 127–169; BP diastolic 60–97; PULSE 80–109; TEMP 36.6–37; O2SAT 90–97; Ht 157.5 cm; Wt 46.3 kg
[2017-11-01] MEDS ORDERED: LEVALBUTEROL 1.25MG/0.5ML NEB INH STA (00:46)
[2017-11-01] MEDS ORDERED: IPRATROPIUM BROMIDE NEB SOLN 0.02% 2.5 ML VIAL INH STA (00:46)
[2017-11-01] MEDS ORDERED: IPRATROPIUM BROMIDE NEB SOLN 0.02% 2.5 ML VIAL INH PRN (01:00)
[2017-11-01] MEDS ORDERED: LEVALBUTEROL 1.25MG/0.5ML NEB INH PRN (01:00)
[2017-11-01] MEDS: AMPICILLIN/SULBACTAM SOD INJ 1,500 MG in SODIUM CHLORIDE 0.9% 100ML 100 ML IV SCH ×4 (03:34→20:17)
--- NOTE | 2017-11-01 06:33 | DIAGNOSTIC IMAGING REPORT ---
(CHEST FOR PE) ANGIO WITH CT DOSE: 254.69 mGy.cm HISTORY: Chest pain dyspnea TECHNIQUE: Multiaxial CT images of the chest were performed following the intravenous administration of contrast to evaluate the pulmonary arteries. Maximal intensity projection images were also obtained. A dose lowering technique was utilized adhering to the principles of ALARA. COMPARISON STUDY: 06/08/2017 FINDINGS: Atherosclerotic change thoracic aorta. No evidence for aneurysm or dissection. Delayed initiation of imaging following contrast injection. Nondiagnostic evaluation of the pulmonary arterial vasculature. There is no evidence for a major central embolus L opacity opacification is limited. There are findings of left and to lesser extent right basilar parenchymal infiltrative change. Less prominent findings seen involving the left upper lobe and lingula. A potential mild gallbladder distention. IMPRESSION: 1. Nondiagnostic study of the pulmonary arterial vasculature. 2. No major evidence for a large central pulmonary embolus. 3. Patchy basilar and midlung parenchymal infiltrates as described. The above report was generated using voice recognition software. It may contain grammatical, syntax or spelling errors. Electronically signed by: Daquan Street M.D. 11/01/2017 6:31 AM Dictated Date/Time: 11/01/2017 6:23 AM
[2017-11-01] MEDS: ENOXAPARIN 30 MG/0.3 ML SYR SC SCH (06:36)
[2017-11-01 07:05] LABS: BASO % 0.2 %; BASO ABS # 0.01 K/uL (0-0.2); EOS % 0.8 %; EOS ABS # 0.04 K/uL (0-0.5); HEMATOCRIT 31.5 % (37-47); IG# 0.05 K/uL (0.00-0.02); LYMPH % 33.4 %; LYMPH ABS # 1.78 K/uL (1.2-3.4); MEAN CELL VOLUME 90.8 fL (80-100); MEAN CORPUSCULAR HEMOGLOBIN 28.8 pg (25-34); MEAN CORPUSCULAR HGB CONC 31.7 g/dl (32-36); MONO % 11.3 %; NEUT % 53.4 %; NEUT ABS # 2.85 K/uL (1.4-6.5); PLATELET COUNT 178 K/uL (130-400); RED CELL DISTRIBUTION WIDTH CV 15.9 % (11.5-14.5); RED CELL DISTRIBUTION WIDTH SD 52.8 fL (36.4-46.3); WHITE BLOOD COUNT 5.33 K/uL (4.8-10.8)
--- NOTE | 2017-11-01 08:02 | HISTORY & PHYSICAL EXAMINATION ---
DATE OF ADMISSION: 10/31/2017 PRIMARY CARE DOCTOR: Dr. Colon. CHIEF COMPLAINT: Cough, shortness of breath. HISTORY OF PRESENT ILLNESS: History obtained from patient, family, and records. Medical history significant for inclusion body myositis, past tobacco abuse, chronic anemia baseline hemoglobin 10, history of nonalcoholic steatohepatitis, hyperlipidemia, hypertension not on meds, known aspiration risk (on mechanical soft diet at home) Recent confinement last May 2017 for bilateral pneumonia. Patient seen at PCP's office last week for sore throat symptoms, postnasal drip , poor p.o. intake, cough for a week. Patient was given prednisone and Augmentin. Strep throat was negative. Patient unimproved despite compliance with medications. Patient was seen at the ER a few days ago. Chest x-ray showed bilateral interstitial pneumonitis. Patient was prescribed Cefdinir and Doxycycline. Cough symptoms increasingly productive of yellowish sputum, increasing shortness of breath, no chest pain. Admits to occasional choking episodes despite compliance to mechanical soft diet. Patient brought to the Emergency Room. MEDICAL HISTORY: As above. SURGERIES: She has had cataract surgery, bladder surgery, total hysterectomy, other gynecological procedure. HOME MEDICATIONS: Includes aspirin. ALLERGIES: TO SULFA. FAMILY HISTORY: Colon cancer, diabetes, heart disease. PERSONAL SOCIAL HISTORY: Past tobacco abuse. No chronic intake of alcoholic beverages. She is a retired teacher. REVIEW OF SYSTEMS: As per HPI, all 10 systems reviewed. All other ROS are negative. PHYSICAL EXAMINATION: VITAL SIGNS: Blood pressure was noted to be 149/100, pulse rate noted to be 105, RR 20, temperature 36.8, sats 94 on room air. Noted to be hyposthenic. SKIN: Pallor, warm. HEENT: Pale conjunctivae. No ptosis. Dry buccal mucosa. NECK: Supple, no tenderness. CHEST: Decreased breath sounds, no tenderness. HEART: Tachycardic, no murmur. ABDOMEN: Soft, nontender. EXTREMITIES: Minimal LE edema. No tenderness. No gross deformities. NEUROLOGIC: Coherent. MMTs all 2/5, both upper and lower extremities (chronic). LABORATORY DATA: Hemoglobin was noted to be 10.9, hematocrit 30.9, white cell count 5.16, platelets 181. Sodium 135, potassium 4, creatinine 0.19. G lucose was noted to be 96. Chest x-ray showed cardiomegaly , elevated hemidiaphragm. nodular airspace opacity left mid lung zone. Flu PCR was positive. ASSESSMENT: 1. Shortness of breath secondary to pneumonia known aspiration risk Failed outpatient treatment Flu PCR positive positive No sepsis rule out pulmonary embolism. 2. Hypertension, slightly elevated Not on medication. 3. Chronic anemia, hemoglobin at baseline. 4. 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 PLAN: PCU CT chest, PE study. Clindamycin continue aspiration precautions. Tamiflu course. PT/OT evaluation. DVT prophylaxis, Lovenox subQ. DNR. MTDD
[2017-11-01] MEDS: ASPIRIN 81 MG ECTAB PO SCH (08:28)
[2017-11-01] MEDS: OSELTAMIVIR PHOSPHATE SUSP 30 MG/5 ML UDP PO SCH ×2 (08:28→20:17)
[2017-11-01] MEDS ORDERED: AMPICILLIN/SULBACTAM CONSULT ACTIVE PRN (09:00)
--- NOTE | 2017-11-01 19:54 | Progress Note ---
Internal Med Progress Note Date of Service: Nov 01, 2017. Provider Documentation: SUBJECTIVE: says feeling better than yesterday still has some sob and cough afebrile no nausea OBJECTIVE: Vital Signs-as noted below Exam: General-alert and oriented. Not in distress ENT-Normal hearing Neck-no neck masses supple Lungs-cta b/l no wheezing no crackles present Heart-S1 and S2 heard regular rate and rthym, no murmurs Abdomen-Soft bowel sounds present non tender no distension Extremities- no edema no erythema Neuro-alert and awake moves extremities Lab data as noted below. ASSESSMENT & PLAN: 1. Shortness of breath secondary to pneumonia known aspiration risk Failed outpatient treatment with Omnicef and doxy Flu PCR positive positive started on Tamiflu and Unasyn No sepsis NO pulmonary embolism. speech evaluation Hypertension, situational? Not on medication.Will monitor. Chronic anemia, hemoglobin at baseline. hx Inclusion body myositis As per h and p:Steady progression of autoimmune myopathy Experimental treatment for disease not available locally as per [facility] [place] Rheumatology evaluation from last year. DVT PROPHYLAXIS Lovenox DISPOSITION to be determined Vital Signs: Date Time Temp Pulse Resp B/P (MAP) Pulse Ox O2 Delivery O2 Flow Rate FiO2 11/01/17 16:00 Room Air 11/01/17 15:51 36.8 80 18 129/81 (97) 95 11/01/17 12:25 36.9 85 20 132/60 (84) 97 11/01/17 12:00 Room Air 11/01/17 08:01 37.0 109 18 129/68 (88) 96 11/01/17 08:00 Room Air 11/01/17 04:00 Room Air 11/01/17 03:27 36.6 88 16 127/77 (94) 96 11/01/17 00:17 36.8 92 20 169/97 96 Room Air 10/31/17 23:45 89 18 155/49 97 10/31/17 22:51 102 18 140/92 94 Room Air 10/31/17 21:26 105 20 150/77 94 Room Air 10/31/17 20:28 97 10/31/17 20:20 83 20 149/100 95 Room Air Lab Results: Results Past 24 Hours Test 10/31/17 20:10 10/31/17 23:46 11/01/17 06:42 11/01/17 10:40 Range/Units Influenza Type A (RT-PCR) POS for Influ A NEG Influenza Type A Antigen Neg for Influ A NEG Influenza Type B Antigen Neg for Influ B NEG Influenza Type B (RT-PCR) Neg for Influ B NEG Lactic Acid Level 1.2 0.4-2.0 mmol/L White Blood Count 5.33 4.8-10.8 K/uL Red Blood Count 3.47 4.2-5.4 M/uL Hemoglobin 10.0 12.0-16.0 g/dL Hematocrit 31.5 37-47 % Mean Corpuscular Volume 90.8 80-100 fL Mean Corpuscular Hemoglobin 28.8 25-34 pg Mean Corpuscular Hemoglobin Concent 31.7 32-36 g/dl Platelet Count 178 130-400 K/uL Mean Platelet Volume 8.0 7.4-10.4 fL Neutrophils (%) (Auto) 53.4 % Lymphocytes (%) (Auto) 33.4 % Monocytes (%) (Auto) 11.3 % Eosinophils (%) (Auto) 0.8 % Basophils (%) (Auto) 0.2 % Neutrophils # (Auto) 2.85 1.4-6.5 K/uL Lymphocytes # (Auto) 1.78 1.2-3.4 K/uL Monocytes # (Auto) 0.60 0.11-0.59 K/uL Eosinophils # (Auto) 0.04 0-0.5 K/uL Basophils # (Auto) 0.01 0-0.2 K/uL RDW Standard Deviation 52.8 36.4-46.3 fL RDW Coefficient of Variation 15.9 11.5-14.5 % Immature Granulocyte % (Auto) 0.9 % Immature Granulocyte # (Auto) 0.05 0.00-0.02 K/uL Urine Color DK YELLOW Urine Appearance CLEAR CLEAR Urine pH 5.0 4.5-7.5 Urine Specific Latta > 1.045 1.000-1.030 Urine Protein TRACE NEG Urine Glucose (UA) NEG NEG Urine Ketones NEG NEG Urine Occult Blood NEG NEG Urine Nitrite NEG NEG Urine Bilirubin NEG NEG Urine Urobilinogen NEG NEG Urine Leukocyte Esterase NEG NEG Urine WBC (Auto) 1-5 0-5 /hpf Urine RBC (Auto) 0-4 0-4 /hpf Urine Hyaline Casts (Auto) 1-5 0-5 /lpf Urine Epithelial Cells (Auto) 20-30 0-5 /lpf Urine Bacteria (Auto) NEG NEG
[2017-11-02] VITALS (11 sets, daily range): BP systolic 129–168; BP diastolic 62–87; PULSE 74–96; TEMP 36.7–36.9; O2SAT 90–99
[2017-11-02] MEDS: AMPICILLIN/SULBACTAM SOD INJ 1,500 MG in SODIUM CHLORIDE 0.9% 100ML 100 ML IV SCH ×4 (03:02→19:58)
[2017-11-02] MEDS: ENOXAPARIN 30 MG/0.3 ML SYR SC SCH (05:38)
[2017-11-02] MEDS: OSELTAMIVIR PHOSPHATE SUSP 30 MG/5 ML UDP PO SCH ×2 (08:51→19:59)
[2017-11-02] MEDS: ASPIRIN 81 MG ECTAB PO SCH (08:51)
--- NOTE | 2017-11-02 16:15 | DIAGNOSTIC IMAGING REPORT ---
BILIARY ULTRASOUND CLINICAL HISTORY: Chest/epigastric pain. Distended gallbladder on CT scan. COMPARISON STUDY: CT scan dated 11/01/2017 FINDINGS: The pancreas appears sonographically normal. No hepatic masses are visualized. Multiple gallstones are visualized. There is gallbladder wall thickening measuring up to 7 mm. Clinical correlation regards to acute cholecystitis is recommended. If desired, a nuclear medicine hepatobiliary study could be obtained in follow-up to assess for cystic duct patency There is no ductal dilatation. The common bile measures 6 mm. There is no right-sided hydronephrosis. There is right renal cortical atrophy. The portal vein appears patent. IMPRESSION: 1. Cholelithiasis with moderate gallbladder wall thickening 2. No evidence of ductal dilatation Electronically signed by: Kalyan Lennon M.D. 11/02/2017 4:14 PM Dictated Date/Time: 11/02/2017 4:10 PM
--- NOTE | 2017-11-02 18:50 | Progress Note ---
Internal Med Progress Note Date of Service: Nov 02, 2017. Provider Documentation: SUBJECTIVE: sob improved coughed last night not bringing anything out afebrile eating ok no pain says doing ok OBJECTIVE: Vital Signs-as noted below Exam: General-alert and oriented. Not in distress ENT-Normal hearing Neck-no neck masses supple Lungs-cta b/l no wheezing no crackles present Heart-S1 and S2 heard regular rate and rthym, no murmurs Abdomen-Soft bowel sounds present non tender no distension Extremities- no edema no erythema Neuro-alert and awake moves extremities Lab data as noted below. ASSESSMENT & PLAN: 1. Shortness of breath secondary to pneumonia known aspiration risk Failed outpatient treatment with Omnicef and doxy Flu PCR positive positive started on Tamiflu and Unasyn No sepsis NO pulmonary embolism. speech evaluation improving Hypertension, situational? Not on medication.Will monitor. Chronic anemia, hemoglobin at baseline. hx Inclusion body myositis As per h and p:Steady progression of autoimmune myopathy Experimental treatment for disease not available locally as per [facility] [place] Rheumatology evaluation from last year. wheel chair bound DVT PROPHYLAXIS Lovenox DISPOSITION transfer to medical floor social service for d/c planning Vital Signs: Date Time Temp Pulse Resp B/P (MAP) Pulse Ox O2 Delivery O2 Flow Rate FiO2 11/02/17 16:00 Room Air 11/02/17 12:03 36.9 86 18 152/70 (97) 96 11/02/17 12:00 Room Air 11/02/17 08:00 96 Room Air 11/02/17 07:57 36.9 74 18 160/74 (102) 96 11/02/17 04:02 95 Room Air 11/02/17 03:15 36.7 96 17 129/78 (95) 90 Room Air 11/02/17 00:07 36.8 92 17 156/87 (110) 90 Room Air 11/02/17 00:00 95 Room Air 11/01/17 20:54 36.8 80 18 162/76 (104) 90 Room Air 11/01/17 20:00 95 Room Air
[2017-11-03] VITALS: O2SAT 95
[2017-11-03] MEDS: AMPICILLIN/SULBACTAM SOD INJ 1,500 MG in SODIUM CHLORIDE 0.9% 100ML 100 ML IV SCH ×2 (02:54→08:53)
[2017-11-03 07:21] VITALS: BP 138/81; PULSE 84; TEMP 36.7; O2SAT 96
[2017-11-03 07:42] LABS: BLOOD UREA NITROGEN 20 mg/dl (7-18); CALCIUM 7.9 mg/dl (8.5-10.1); CARBON DIOXIDE 19 mmol/L (21-32); CREATININE < 0.15 mg/dl (0.60-1.20); GLUCOSE 95 mg/dl (70-99); SODIUM 145 mmol/L (136-145)
[2017-11-03] MEDS: HEPARIN SOD 5000 UNIT/0.5 ML CARP SQ SCH ×2 (08:52→21:25)
[2017-11-03] MEDS: OSELTAMIVIR PHOSPHATE SUSP 30 MG/5 ML UDP PO SCH ×2 (08:53→21:19)
[2017-11-03] MEDS: ASPIRIN 81 MG ECTAB PO SCH (08:53)
[2017-11-03] MEDS ORDERED: POTASSIUM CHLORIDE 20 MEQ TABCR PO ONE (12:30)
--- NOTE | 2017-11-03 13:23 | Progress Note ---
Internal Med Progress Note Date of Service: Nov 03, 2017. Provider Documentation: SUBJECTIVE: Feeling much better coughed lot of sputum but breathing is much better no nausea no abdominal pain eating fine OBJECTIVE: Vital Signs-as noted below Exam: General-alert and oriented. Not in distress ENT-Normal hearing Neck-no neck masses supple Lungs-cta b/l no wheezing no crackles present Heart-S1 and S2 heard regular rate and rthym, no murmurs Abdomen-Soft bowel sounds present non tender no distension Extremities- no edema no erythema Neuro-alert and awake moves extremities Lab data as noted below. ASSESSMENT & PLAN: 1. Shortness of breath secondary to pneumonia known aspiration risk Failed outpatient treatment with Omnicef and doxy Flu PCR positive positive started on Tamiflu and Unasyn No sepsis NO pulmonary embolism. speech evaluation improving will change Unasyn to augmentin Hypertension, situational? Not on medication.Will monitor. Chronic anemia, hemoglobin at baseline. hx Inclusion body myositis As per h and p:Steady progression of autoimmune myopathy Experimental treatment for disease not available locally as per [facility] [place] Rheumatology evaluation from last year. wheel chair bound DVT PROPHYLAXIS Lovenox DISPOSITION possible d/c in am if stable social service for d/c planning Vital Signs: Date Time Temp Pulse Resp B/P (MAP) Pulse Ox O2 Delivery O2 Flow Rate FiO2 11/03/17 08:00 Room Air 11/03/17 07:21 36.7 84 18 138/81 (100) 96 Room Air 11/03/17 00:00 95 Room Air 11/02/17 23:57 36.9 93 20 147/62 (90) 96 Room Air 11/02/17 23:18 36.7 89 17 95 11/02/17 20:00 95 Room Air 11/02/17 19:30 36.7 89 17 168/74 (105) 99 Room Air 11/02/17 16:00 Room Air Lab Results: Results Past 24 Hours Test 11/03/17 07:00 Range/Units Sodium Level 145 136-145 mmol/L Potassium Level 3.0 3.5-5.1 mmol/L Chloride Level 118 98-107 mmol/L Carbon Dioxide Level 19 21-32 mmol/L Anion Gap 8.0 3-11 mmol/L Blood Urea Nitrogen 20 7-18 mg/dl Creatinine < 0.15 0.60-1.20 mg/dl Est Creatinine Clear Calc Drug Dose 233.2 ml/min Estimated GFR () > 150.0 Estimated GFR (Non- 139.7 BUN/Creatinine Ratio 10-20 Random Glucose 95 70-99 mg/dl Calcium Level 7.9 8.5-10.1 mg/dl Magnesium Level 1.8 1.8-2.4 mg/dl
[2017-11-03 15:38] VITALS: BP 136/78; PULSE 93; TEMP 37; O2SAT 92
[2017-11-03 16:00] VITALS: O2SAT 92
[2017-11-03] MEDS: AMOXICILLIN/CLAVULANATE TAB 875 MG TAB PO SCH (16:34)
[2017-11-03] MEDS ORDERED: SODIUM CHLOR 0.45% + 20MEQ KCL 1,000 ML IV ONE (22:15)
[2017-11-03 23:27] VITALS: BP 131/76; PULSE 97; TEMP 37.5; O2SAT 93
[2017-11-04 07:11] VITALS: BP 140/79; PULSE 87; TEMP 36.7; O2SAT 95
[2017-11-04 07:15] LABS: BASO % 0.2 %; BASO ABS # 0.01 K/uL (0-0.2); EOS % 0.4 %; EOS ABS # 0.02 K/uL (0-0.5); HEMATOCRIT 28.4 % (37-47); HEMOGLOBIN 9.2 g/dL (12.0-16.0); IG# 0.03 K/uL (0.00-0.02); LYMPH % 22.7 %; LYMPH ABS # 1.14 K/uL (1.2-3.4); MEAN CELL VOLUME 90.4 fL (80-100); MEAN CORPUSCULAR HEMOGLOBIN 29.3 pg (25-34); MEAN CORPUSCULAR HGB CONC 32.4 g/dl (32-36); MEAN PLATELET VOLUME 8.5 fL (7.4-10.4); MONO % 8.4 %; MONO ABS # 0.42 K/uL (0.11-0.59); NEUT % 67.7 %; PLATELET COUNT 145 K/uL (130-400); RED CELL DISTRIBUTION WIDTH CV 15.9 % (11.5-14.5); RED CELL DISTRIBUTION WIDTH SD 52.2 fL (36.4-46.3); WHITE BLOOD COUNT 5.02 K/uL (4.8-10.8)
[2017-11-04] MEDS: ASPIRIN 81 MG ECTAB PO SCH (07:43)
[2017-11-04] MEDS: AMOXICILLIN/CLAVULANATE TAB 875 MG TAB PO SCH (07:43)
[2017-11-04 07:46] LABS: BLOOD UREA NITROGEN 19 mg/dl (7-18); CALCIUM 7.5 mg/dl (8.5-10.1); CARBON DIOXIDE 21 mmol/L (21-32); CREATININE < 0.15 mg/dl (0.60-1.20); GLUCOSE 93 mg/dl (70-99); POTASSIUM 3.7 mmol/L (3.5-5.1); SODIUM 143 mmol/L (136-145)
[2017-11-04] MEDS: OSELTAMIVIR PHOSPHATE SUSP 30 MG/5 ML UDP PO SCH (07:59)
[2017-11-04] MEDS: HEPARIN SOD 5000 UNIT/0.5 ML CARP SQ SCH (07:59)
--- NOTE | 2017-11-04 08:47 | Clinical Documentation Query ---
CLINICAL DOCUMENTATION QUERY Dr. DOUGLASS, In your clinical opinion is this patient being managed for: ( ) Severe protein-calorie malnutrition ( ) Not Agree ( ) Other explanation of clinical findings (Please Explain) ( ) Unable to determine (Please Define) ( ) Need to Discuss The medical record reflects the following clinical findings, treatment, and risk factors. Clinical Indicators:77 yo female presenting with constant weakness, found to have pneumonia and influenza. Per nutrition assessment, pt noted to have acute malnutrition with wt loss of >7.5 % over 3 months/moderate to severe muscle and fat loss. Treatment: nutrition consult, CBE daily made with whole milk, IV fluids, Risk Factors: age, inclusion body myositis, pneumonia, influenza Severe Malnutrition Criteria: (2 criteria needed) Energy intake: <50% of estimated energy requirement for > 5 days Wt loss: 1-2% in 1 wk, 5% in 1 month, or 7.5% in 3 months Body fat: moderate loss of SQ fat from the orbits, triceps or fat overlying the ribs Muscle mass: moderate muscle wasting at the temples, clavicles, shoulders, interosseous spaces, scapula, thigh, calf Fluid accumulation: moderate to severe localized or generalized edema of the extremities, vulva, scrotum-wt loss may be masked by edema Please clarify and document your clinical opinion in the progress notes and discharge summary. Terms such as "probable", "suspected", "likely", "questionable", "possible", or "still to be ruled out" are acceptable. IF IN AGREEMENT, YOU MUST DOCUMENT ABOVE DIAGNOSTIC STATEMENT IN DAILY PROGRESS NOTES AND DISCHARGE SUMMARY. This document is not part of the patient's record. Thank You, Anya Vickers, RN [phone]
[2017-11-04 09:29] VITALS: O2SAT 95
[2017-11-04 11:29] VITALS: PULSE 88; O2SAT 96
[2017-11-04] MEDS ORDERED: POLYETHYLENE (MIRALAX) 17 GM PACK PO ONE (12:45)
[2017-11-04] MEDS ORDERED: AMOX1TAB43 PO (12:48)
[2017-11-04] MEDS ORDERED: VNTHFA/IN INH (12:48)
[2017-11-04] MEDS ORDERED: TMFUDL30 PO (12:48)
--- NOTE | 2017-11-04 12:50 | Discharge Instructions ---
Discharge Instructions Date of Service Nov 04, 2017. Admission Reason for Admission: Sepsis Discharge Discharge Diagnosis / Problem: infulenza A, pneumonia Discharge Goals Goal(s): Decrease discomfort, Improve function Activity Recommendations Activity Limitations: resume your previous activity . Instructions / Follow-Up Instructions / Follow-Up FOLLOWUP WITH FAMILY DOCTOR Keke Bolivar ON Oct AT 9:45AM Speech Therapy Discharge Instructions FROM MAY 2017: * Recommendin.Mechanical soft ground or soft cut diet with allowance for any food items desired 2.Safe swallow strategies (small sips, small bites, slow rate) Current Hospital Diet Patient's current hospital diet: AHA Diet (Heart Healthy) Discharge Diet Recommended Diet: AHA Diet (Heart Healthy) Diet Texture: Mechanical Soft (ground) Pending Studies Studies pending at discharge: no Medical Emergencies . Who to Call and When: Medical Emergencies: If at any time you feel your situation is an emergency, please call 911 immediately. . Non-Emergent Contact Non-Emergency issues call your: Primary Care Provider . . "Provider Documentation" section prepared by Delvis Brownlee. . VTE Core Measure Inpt VTE Proph given/why not?: Unfractionated heparin SQ
[2017-11-04] MEDS ORDERED: LCTX PO (12:51)
[2017-11-04 14:27] VITALS: BP 140/79; PULSE 88; TEMP 36.7; O2SAT 96
[2017-11-04 15:43] VITALS: BP 141/81; PULSE 95; TEMP 37.4; O2SAT 92
--- NOTE | 2017-11-04 18:23 | Progress Note ---
Internal Med Progress Note Date of Service: Nov 04, 2017. Provider Documentation: SUBJECTIVE: says sob and cough improving coughing whitish sputum afebrile constipated eating ok want to go home OBJECTIVE: Vital Signs-as noted below Exam: General-alert and oriented. Not in distress ENT-Normal hearing Neck-no neck masses supple Lungs-cta b/l no wheezing no crackles present Heart-S1 and S2 heard regular rate and rthym, no murmurs Abdomen-Soft bowel sounds present non tender no distension Extremities- no edema no erythema Neuro-alert and awake moves extremities Lab data as noted below. ASSESSMENT & PLAN: 1. Shortness of breath secondary to pneumonia known aspiration risk Failed outpatient treatment with Omnicef and doxy Flu PCR positive positive started on Tamiflu and Unasyn No sepsis NO pulmonary embolism. speech evaluation improving will change Unasyn to Augmentin d/con Augmentin and Tamiflu to complete the course Hypertension, situational? Not on medication.Will monitor. Chronic anemia, hemoglobin at baseline. hx Inclusion body myositis As per h and p:Steady progression of autoimmune myopathy Experimental treatment for disease not available locally as per [facility] [place] Rheumatology evaluation from last year. wheel chair bound discharged home Vital Signs: Date Time Temp Pulse Resp B/P (MAP) Pulse Ox O2 Delivery O2 Flow Rate FiO2 11/04/17 15:43 37.4 95 18 141/81 (101) 92 Room Air 11/04/17 14:27 36.7 88 16 96 Room Air 11/04/17 11:29 88 16 96 Room Air 11/04/17 09:29 95 Room Air 11/04/17 07:11 36.7 87 20 140/79 (99) 95 11/03/17 23:45 Room Air 11/03/17 23:27 37.5 97 20 131/76 (94) 93 Room Air Lab Results: Results Past 24 Hours Test 11/04/17 06:48 Range/Units White Blood Count 5.02 4.8-10.8 K/uL Red Blood Count 3.14 4.2-5.4 M/uL Hemoglobin 9.2 12.0-16.0 g/dL Hematocrit 28.4 37-47 % Mean Corpuscular Volume 90.4 80-100 fL Mean Corpuscular Hemoglobin 29.3 25-34 pg Mean Corpuscular Hemoglobin Concent 32.4 32-36 g/dl Platelet Count 145 130-400 K/uL Mean Platelet Volume 8.5 7.4-10.4 fL Neutrophils (%) (Auto) 67.7 % Lymphocytes (%) (Auto) 22.7 % Monocytes (%) (Auto) 8.4 % Eosinophils (%) (Auto) 0.4 % Basophils (%) (Auto) 0.2 % Neutrophils # (Auto) 3.40 1.4-6.5 K/uL Lymphocytes # (Auto) 1.14 1.2-3.4 K/uL Monocytes # (Auto) 0.42 0.11-0.59 K/uL Eosinophils # (Auto) 0.02 0-0.5 K/uL Basophils # (Auto) 0.01 0-0.2 K/uL RDW Standard Deviation 52.2 36.4-46.3 fL RDW Coefficient of Variation 15.9 11.5-14.5 % Immature Granulocyte % (Auto) 0.6 % Immature Granulocyte # (Auto) 0.03 0.00-0.02 K/uL Sodium Level 143 136-145 mmol/L Potassium Level 3.7 3.5-5.1 mmol/L Chloride Level 115 98-107 mmol/L Carbon Dioxide Level 21 21-32 mmol/L Anion Gap 7.0 3-11 mmol/L Blood Urea Nitrogen 19 7-18 mg/dl Creatinine < 0.15 0.60-1.20 mg/dl Est Creatinine Clear Calc Drug Dose 233.2 ml/min Estimated GFR () > 150.0 Estimated GFR (Non- 139.7 BUN/Creatinine Ratio 10-20 Random Glucose 93 70-99 mg/dl Calcium Level 7.5 8.5-10.1 mg/dl Magnesium Level 1.6 1.8-2.4 mg/dl
--- NOTE | 2017-11-04 18:36 | Discharge Summary ---
Discharge Summary Date of Service Nov 04, 2017. Discharge Summary Admission Date: Oct 31, 2017 at 22:50 Discharge Date: Nov 04, 2017 Discharge Disposition: Home with services Principal Diagnosis: INFLUENZA A PNEUMONIA Secondary Diagnoses/Problems: for inclusion body myositis, past tobacco abuse, chronic anemia baseline hemoglobin 10, history of nonalcoholic steatohepatitis, hyperlipidemia, hypertension not on meds, known aspiration risk (on mechanical soft diet at home) Procedures: CTA CHEST: 1. Nondiagnostic study of the pulmonary arterial vasculature. 2. No major evidence for a large central pulmonary embolus. 3. Patchy basilar and midlung parenchymal infiltrates as described. GALL BLADDER US: 1. Cholelithiasis with moderate gallbladder wall thickening 2. No evidence of ductal dilatation Medication Reconciliation New Medications: Albuterol Hfa (Ventolin Hfa) 200 Puffs/63601 Mcg Aers 2 PUFFS INH Q6H PRN for SOB/Wheezing, #1 INHALER Lactobacillus Acidophilus (Lactinex) Tab 2 TAB PO BID for 7 Days, #28 TAB Amoxicillin & Pot Clavulanate (Amoxicillin/Clavulanate P) 1 Tab Tab 875 MG PO BIDM for 4 Days, #8 TAB Oseltamivir Phosphate (Tamiflu) 6 Mg/Ml Janette 30 MG PO BID, #3 Continued Medications: Aspirin (Ecotrin Low Strength) 81 Mg Tab 81 MG PO DAILY Discontinued Medications: Cefdinir (Omnicef) 300 Mg Cap 300 MG PO Q12H for 10 Days, #20 CAP Doxycycline Hyclate (Vibramycin) 100 Mg Cap 100 MG PO BID for 10 Days, #20 CAP Admission Information HPI (per Admitting provider): History obtained from patient, family, and records. Medical history significant for inclusion body myositis, past tobacco abuse, chronic anemia baseline hemoglobin 10, history of nonalcoholic steatohepatitis, hyperlipidemia, hypertension not on meds, known aspiration risk (on mechanical soft diet at home) Recent confinement last May 2017 for bilateral pneumonia. Patient seen at PCP's office last week for sore throat symptoms, postnasal drip , poor p.o. intake, cough for a week. Patient was given prednisone and Augmentin. Strep throat was negative. Patient unimproved despite compliance with medications. Patient was seen at the ER a few days ago. Chest x-ray showed bilateral interstitial pneumonitis. Patient was prescribed Cefdinir and Doxycycline. Cough symptoms increasingly productive of yellowish sputum, increasing shortness of breath, no chest pain. Admits to occasional choking episodes despite compliance to mechanical soft diet. Patient brought to the Emergency Room. Physical Exam (per Admitting): VITAL SIGNS: Blood pressure was noted to be 149/100, pulse rate noted to be 105, RR 20, temperature 36.8, sats 94 on room air. Noted to be hyposthenic. SKIN: Pallor, warm. HEENT: Pale conjunctivae. No ptosis. Dry buccal mucosa. NECK: Supple, no tenderness. CHEST: Decreased breath sounds, no tenderness. HEART: Tachycardic, no murmur. ABDOMEN: Soft, nontender. EXTREMITIES: Minimal LE edema. No tenderness. No gross deformities. NEUROLOGIC: Coherent. MMTs all 2/5, both upper and lower extremities (chronic). Hospital Course 1. Shortness of breath secondary to pneumonia known aspiration risk Failed outpatient treatment with Omnicef and doxy Flu PCR positive positive started on Tamiflu and Unasyn No sepsis NO pulmonary embolism. speech evaluation improving will change Unasyn to Augmentin d/con Augmentin and Tamiflu to complete the course Hypertension, situational? Not on medication.Will monitor. Chronic anemia, hemoglobin at baseline. hx Inclusion body myositis As per h and p:Steady progression of autoimmune myopathy Experimental treatment for disease not available locally [place] [facility] [place] from last year. wheel chair bound discharged home Total time spent on discharge = 35MINUTES This includes examination of the patient, discharge planning, medication reconciliation, and communication with other providers. Discharge Instructions Discharge Instructions Date of Service Nov 04, 2017. Admission Reason for Admission: Sepsis Discharge Discharge Diagnosis / Problem: infulenza A, pneumonia Discharge Goals Goal(s): Decrease discomfort, Improve function Activity Recommendations Activity Limitations: resume your previous activity . Instructions / Follow-Up Instructions / Follow-Up FOLLOWUP WITH FAMILY DOCTOR Keke Bolivar ON Oct AT 9:45AM Speech Therapy Discharge Instructions FROM MAY 2017: * Recommendin.Mechanical soft ground or soft cut diet with allowance for any food items desired 2.Safe swallow strategies (small sips, small bites, slow rate) Current Hospital Diet Patient's current hospital diet: AHA Diet (Heart Healthy) Discharge Diet Recommended Diet: AHA Diet (Heart Healthy) Diet Texture: Mechanical Soft (ground) Pending Studies Studies pending at discharge: no Medical Emergencies . Who to Call and When: Medical Emergencies: If at any time you feel your situation is an emergency, please call 911 immediately. . Non-Emergent Contact Non-Emergency issues call your: Primary Care Provider . . "Provider Documentation" section prepared by Delvis Brownlee. . VTE Core Measure Inpt VTE Proph given/why not?: Unfractionated heparin SQ
== END 2017-11-04 15:47 | disposition home health service (06) | DRG 195 ==
LOC: C.EDB 16:34 → C.2T 22:50 → ENRESERV 23:12 → C.MS2W 11-02 22:36
PROVIDERS: ADMIT Internal Medicine; ATTEND Internal Medicine
DX: J10.00 Influenza due to other identified influenza virus with unspecified type of pneumonia (principal); J18.9 Pneumonia, unspecified organism; I10 Essential (primary) hypertension; M81.0 Age-related osteoporosis without current pathological fracture; G72.41 Inclusion body myositis [IBM]; Z87.891 Personal history of nicotine dependence; K75.81 Nonalcoholic steatohepatitis (NASH); Z88.2 Allergy status to sulfonamides; D64.9 Anemia, unspecified; Z74.09 Other reduced mobility

== ENCOUNTER → 2018-01-01 | Outpatient (CLI) | payer OTHER ==
[~2018-01-01] MED LIST changes: +AMOX1TAB43 PO; -AMOX250S5 PO; -CEFD300C2 PO; -DOXY100C PO; +TMFUDL30 PO; +VNTHFA/IN INH
--- NOTE | 2018-01-01 16:36 | DIAGNOSTIC IMAGING REPORT ---
CHEST 2 VIEWS ROUTINE CLINICAL HISTORY: 77 years-old Female presenting with J18.9 concern for pneumonia. TECHNIQUE: PA and lateral views of the chest were obtained. COMPARISON: 10/31/2017 and CTA 11/01/2017. FINDINGS: Atherosclerosis of the aortic arch. Cardiac silhouette normal in size. Elevation of the left hemidiaphragm. No focal opacity. No large effusion or pneumothorax. Osteopenia. Exaggerated thoracic kyphosis. Upper abdomen normal. IMPRESSION: 1. No acute cardiopulmonary disease. Electronically signed by: Reilly Mack M.D. 01/01/2018 4:34 PM Dictated Date/Time: 01/01/2018 4:32 PM
== END | disposition home or self-care (01) ==
LOC: C.RAD1850 15:51
PROVIDERS: ATTEND Internal Medicine Pulmonary Disease
DX: J18.9 Pneumonia, unspecified organism (principal)

== ENCOUNTER 2019-01-24 09:55 | Inpatient (IN) ==
[2019-01-24] MEDS ORDERED: ONDANSETRON INJ 2 MG/ML 2 ML VIAL IV STA (10:03)
[2019-01-24] MEDS ORDERED: HYDROmorphone INJ 0.5 MG/0.5 ML SYR IV STA (10:03)
--- NOTE | 2019-01-24 10:56 | CT Scan Report ---
CT OF THE LUMBAR SPINE WITHOUT CONTRAST CLINICAL HISTORY: Low back pain. COMPARISON STUDY: Lumbar spine radiographs December 16, 2010. TECHNIQUE: Axial images of the lumbar spine were obtained. Sagittal and coronal reconstructions were viewed. Automated exposure control was utilized for the study. A dose lowering technique was utilize d adhering to the principles of ALARA. FINDINGS: An old severe T12 compression fractures unchanged since chest CT of November 01, 2017. There is no acute lumbar spine fracture. Paravertebral soft tissues are unremarkable. No suspicious osseous lesion is identified by CT. The central canal and neural foramen are suboptimally assessed by CT. Th ere is suspected moderate central canal narrowing at L4-L5. Facet joints are intact. 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 Note is made of a minimally displaced fracture of the left sacroiliac which is likely acute. There is subtle sclerosis within the right sacral ala without definitive fracture. IMPRESSION: 1. Acute minimally displaced fracture of the left sacral ala. Equivocal nondisplaced fracture of the right sacral ala. 2. No acute lumbar spine fracture. 3. No change in a severe T12 compression fracture since chest CT of November 01, 2017. Electronically signed by: Reyes Park M.D. 01/24/2019 10:55 AM
--- NOTE | 2019-01-24 11:01 | CT Scan Report ---
CT OF THE PELVIS WITHOUT CONTRAST CLINICAL HISTORY: Low back pain. COMPARISON STUDY: No previous studies for comparison. TECHNIQUE: Axial images of the pelvis were obtained without IV contrast. Coronal and sagittal reforma ts were viewed. Automated exposure control was utilized for the study. A dose lowering technique was utilized adhering to the principles of ALARA. FINDINGS: Marked muscular atrophy is noted. There is sigmoid diverticulosis without evidence for acut e diverticulitis. There is no acute fracture within the proximal femurs. There is a bone island withi n the intertrochanteric portion of the right femur. No suspicious osseous lesions are noted. Note is made of an acute minimally displaced fracture of the left sacral ala. There is an equivocal nondispla praneeth fracture of the right sacral ala. Bladder is mildly distended. No pelvic masses are identified. T here is no pelvic lymphadenopathy. There is moderate bilateral hip osteoarthritis. IMPRESSION: 1. Acute minimally displaced fracture of the left sacral ala. Equivocal nondisplaced fracture of the right sacral ala. 2. No acute fracture within the pelvis or hips. 3. Marked muscular atrophy. Electronically signed by: Reyes Park M.D. 01/24/2019 10:59 AM
[2019-01-24 14:37] LABS: Hematocrit (blood only) 32.8 % (37-47); Mean Corpuscular Hgb Conc 33.5 g/dL (32-36); Mean Corpuscular Volume 90.1 fL (80-100); Mean Platelet Volume 8.9 fL (7.4-10.4); Platelet Count 139 K/uL (130-400); RDW Coefficient of Variation 14.2 % (11.5-14.5); RDW Standard Deviation 46.8 fL (36.4-46.3); Red Blood Count 3.64 M/uL (4.2-5.4); White Blood Count 4.01 K/uL (4.8-10.8)
--- NOTE | 2019-01-24 14:47 | History & Physical Report ---
Date of Service January 24, 2019 Assessment & Plan (1) Inclusion body myositis: (2) Sacral fracture: -Admit to [facility] -Patient presenting from home with increasing low back pain for the last 4 days; in the ED, patient was found to have bilateral sacral ala fractures -Admit for pain control -will try [id number] Tylenol and as needed tramadol -PT/OT evaluations -noted patient is bedbound and Brittany lift dependent for transfers -Ortho consult, input appreciated (3) Hypertension: -BP intermittently elevated, likely secondary to pain -Continue home dose of lisinopril for now, make adjustments as needed (4) DVT prophylaxis: -SQ heparin History of Present Illness Chief Complaint: Back pain Primary Care Provider: Keke Colon 78-year-old female who presents to the ED with back pain. 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 Patient reports a few days ago, she was being transferred in her Brittany lift when she was not seated correctly and subsequently twisted her back and had onset of low back pain. Patient reports pain has been persistent. She has tried taking [id number] Advil however did this did not relieve her pain. Patient reports she otherwise has been feeling well recently. No chest pain or shortness of breath. She denies lightheadedness, dizziness, diaphoresis, syncopal events. No abdominal pain, nausea, vomiting, diarrhea. She denies fevers and chills. No urinary symptoms. In the ED, pelvis CT shows an acute minimally displaced fracture of the left sacral ala and equivocal nondisplaced fracture of the right sacral ala. Patient was given IV Dilaudid 0.25 mg in the ED and reports marked improvement in her pain. Allergies Allergy/AdvReac Type Severity Reaction Status Date / Time Sulfa (Sulfonamide Allergy Unknown UNKNOWN Verified 01/24/19 10:59 Antibiotics) Home Medications Home Medications Medication Instructions Recorded Confirmed Type fluticasone propionate 1 spray INTRANASAL DAILY 01/24/19 01/24/19 History lisinopril 5 mg PO QAM 01/24/19 01/24/19 History acetaminophen 500 mg PO Q6H PRN #20 cap 01/27/19 Rx tramadol 50 mg PO Q6H PRN 7 Days #15 tab 01/27/19 Rx Past Med/Surg History Medical History Hypertension (Chronic) Osteoporosis (Chronic) Inclusion body myositis (Chronic) Surgical History History of cataract surgery (Chronic) History of hysterectomy (Chronic) Family History Mother Colon cancer Social History Preferred Language: Ukrainian Beliefs That Will Affect Care: None marital status: / Current Living Situation: Alone current occupational status: retired Other Information That Helps Us Care for You: No Feels Safe at Home: Yes Safety Concerns: Feels Safe At This Time Smoking Status: Never smoker Hx Alcohol Use: No Hx Substance Use: No Review of Systems ROS per HPI, all other systems reviewed and negative Physical Exam Vital Signs (Past 24 Hours): Last Vital Signs Temp 36.5 C 01/24/19 13:53 Pulse 70 01/24/19 13:53 Resp 16 01/24/19 13:53 BP 171/99 H 01/24/19 13:53 Pulse Ox 95 01/24/19 13:53 Constitutional: WD/WN, vitals as above + thin Eyes: PERRL, conjunctivae normal, anicteric sclerae ENMT: external ear and nose normal, oropharynx normal Respiratory: normal respiratory effort, lungs clear to auscultation Cardiovascular: Rate/Rhythm: regular rate and regular rhythm Heart Sounds: + murmur (grade 3/6) Vessels: normal peripheral pulses Extremities: no edema Gastrointestinal (Abdomen): normal bowel sounds, soft, nontender, no hepatosplenomegaly Musculoskeletal: Extremities: + abnormal strength (only has movement in hands and feet; unable to lift arms or legs); no cyanosis and no clubbing Skin: no rashes, warm and dry Neurologic: PERRL, EOMI, accommodation nl, no face palsy, no dysarthria Psychiatric: A+Ox3, euthymic affect Results & Data Laboratory Results Laboratory Last Values WBC 4.01 K/uL (4.8-10.8) L 01/24/19 14:14 RBC 3.64 M/uL (4.2-5.4) L 01/24/19 14:14 Hgb 11.0 g/dL (12.0-16.0) L 01/24/19 14:14 Hct 32.8 % (37-47) L 01/24/19 14:14 MCV 90.1 fL (80-100) 01/24/19 14:14 MCH 30.2 pg (25-34) 01/24/19 14:14 MCHC 33.5 g/dL (32-36) 01/24/19 14:14 RDW Std Deviation 46.8 fL (36.4-46.3) H 01/24/19 14:14 RDW Coeff of Brooklynn 14.2 % (11.5-14.5) 01/24/19 14:14 Plt Count 139 K/uL (130-400) 01/24/19 14:14 MPV 8.9 fL (7.4-10.4) 01/24/19 14:14 Sodium 138 mmol/L (136-145) 01/24/19 14:14 Potassium 4.8 mmol/L (3.5-5.1) 01/24/19 14:14 Chloride 109 mmol/L (98-107) H 01/24/19 14:14 Carbon Dioxide 23 mmol/L (21-32) 01/24/19 14:14 Anion Gap 6.0 (3-11) 01/24/19 14:14 BUN 21 mg/dl (7-18) H 01/24/19 14:14 Creatinine 0.18 mg/dl (0.6-1.2) L 01/24/19 14:14 Est Cr Clr Drug Dosing 207.0 ml/min 01/24/19 14:14 Est GFR ( Amer) > 150.0 01/24/19 14:14 Est GFR (Non-Af Amer) 130.7 01/24/19 14:14 BUN/Creatinine Ratio 116.7 (10-20) H 01/24/19 14:14 Glucose 77 mg/dl (70-99) 01/24/19 14:14 Calcium 9.0 mg/dl (8.5-10.1) 01/24/19 14:[address] IMPRESSION: 1. Acute minimally displaced fracture of the left sacral ala. Equivocal nondisplaced fracture of the right sacral ala. 2. No acute fracture within the pelvis or hips. 3. Marked muscular atrophy. Code Status & VTE Plan Code Status Patient is a DNR as per my discussion with her. However she reports she would be willing to have elective intubation for a short time if needed. VTE Prophylaxis Plan VTE Prophylaxis will be ordered: Yes Supervising Physician Co-Signing Physician Notes Attending Addendum: care coordinated with EVA Garcia please refer to her notes for full details, I agree with her notes patient seen and examined, records reviewed by myself as well on exam, patient seen resting in bed, sister at bedside, still has intermittent low back pain worse with movement but appears comfortable on the time of my exam no other symptoms VS noted and reviewed oriented x 3 , not in distress, speaks in sentences with no effort nor accessory muscle use normal rate, regular rhythm, no murmurs clear breath sounds bilaterally non distended, soft, nontender no bipedal edema, erythema, warmth (+) diffuse muscle weakness- chornic crea 0.18 CT pelv: BL sacral alar fractures ASSESSMENT AND PLAN Sacral Alar Fractures Ortho consulted pain management 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
[2019-01-24 14:57] LABS: BUN Creatinine Ratio 116.7 (10-20); Blood Urea Nitrogen 21 mg/dl (7-18); Carbon Dioxide 23 mmol/L (21-32); Chloride 109 mmol/L (98-107); Est GFR (African American) > 150.0; Est GFR (Non-African American) 130.7; Glucose 77 mg/dl (70-99); Potassium 4.8 mmol/L (3.5-5.1); Sodium 138 mmol/L (136-145)
[2019-01-24] MEDS ORDERED: D5W AND NSS 1,000 ML IV SCH (16:00)
--- NOTE | 2019-01-24 16:22 | XRay Report ---
XR chest 1V portable HISTORY: 78 years-old Female hypoxia, r/o aspiration acute shortness of breath COMPARISON: Chest radiographs 01/01/2018 TECHNIQUE: Portable AP view of the chest FINDINGS: Study is limited secondary to patient positioning. The patient is rotated to the left and side bent t o the left. Cardiac silhouette is mildly enlarged. Calcification the thoracic aortic arch. Chronic le ft hemidiaphragmatic elevation. No pneumothorax, large pleural effusion or overt pulmonary edema. Chr onic left costophrenic angle blunting. No lobar airspace consolidation. Degenerative changes of the s houlders and spine. IMPRESSION: 1. Limited exam secondary to positioning. No acute process identified. 2. Chronic left hemidiaphragmatic elevation with unchanged left costophrenic angle blunting suggestiv e of probable scarring. The above report was generated using voice recognition software. It may contain grammatical, syntax o r spelling errors. Electronically signed by: Michoacano Fung M.D. 01/24/2019 4:21 PM
[2019-01-24 17:28] LABS: INR 1.1 (0.9-1.1); Prothrombin Time 11.5 Seconds (9.0-12.0)
[2019-01-24] MEDS: ACETAMINOPHEN 65 ML IV SCH (17:33)
[2019-01-24] MEDS ORDERED: ACETAMINOPHEN SOL 650 MG/20.3 ML UDC PO SCH (18:00)
--- NOTE | 2019-01-24 20:26 | Orthopedic Consultation ---
Date of Consultation January 24, 2019 Assessment & Plan (1) Sacral fracture: Bilateral sacral ala fractures -No surgical intervention indicated at this time. Patient will need to maintain non weightbearing on bilateral lower extremities. Patient does not ambulate. Patient may sit in chair And use Brittany lift for transfers. Will require pain control, PT/OT. Will need follow-up in the office in 2 weeks for repeat XRs/follow up with Dr. Mcqueen, . Thank you for the conultation. History of Present Illness Reason for Consultation: Bilateral sacral fractures Attending Physician: Santy Chen MD History of Present Illness The patient is a 78-year-old female who Presented to [facility] emergency department with complaints of low back pain x4 days. 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 Patient reports a few days ago, she was being transferred in her Brittany lift when she was not seated correctly and subsequently twisted her back and had onset of low back pain. Patient reports pain has been persistentI makes it difficult to sleep. Denies numbness and tingling in lower extremities.Denies associated injuries. Allergies Allergy/AdvReac Type Severity Reaction Status Date / Time Sulfa (Sulfonamide Allergy Unknown UNKNOWN Verified 01/24/19 10:59 Antibiotics) Home Medications Home Medications Medication Instructions Recorded Confirmed Type fluticasone propionate 1 spray INTRANASAL DAILY 01/24/19 01/24/19 History ibuprofen [Advil] 2 cap PO Q4H PRN 01/24/19 01/24/19 History lisinopril 5 mg PO QAM 01/24/19 01/24/19 History Patient History Medical History Hypertension (Chronic) Osteoporosis (Chronic) Inclusion body myositis (Chronic) Surgical History History of cataract surgery (Chronic) History of hysterectomy (Chronic) Family History Mother Colon cancer Social History Preferred Language: Indonesian Communication Ability: Effective Communication Ability Comment: unable to lift right arm to write, general weakness Broom Stitcher Required: No Beliefs That Will Affect Care: None marital status: / Current Living Situation: Alone current occupational status: retired Other Information That Helps Us Care for You: No Feels Safe at Home: Yes Safety Concerns: Feels Safe At This Time Smoking Status: Never smoker Hx Alcohol Use: No Hx Substance Use: No Physical Exam Vital Signs (Past 24 Hours): Last Vital Signs Temp 37.1 C 01/24/19 14:59 Pulse 139 H 01/24/19 14:59 Resp 18 01/24/19 14:59 BP 143/90 H 01/24/19 14:59 Pulse Ox 90 01/24/19 14:59 Physical Exam: Physical exam limited secondary to underlying myopathy. Patient does have sensation intact grossly, able to wiggle bilateral toes, + EHL/FHL. +2 dorsalis pedis pulse, compartments soft nontender, skin intact, no ecchymoses noted. Constitutional: WD/WN, vitals as above Results & Data Diagnostic Findings CT OF THE PELVIS WITHOUT CONTRAST CLINICAL HISTORY: Low back pain. COMPARISON STUDY: No previous studies for comparison. TECHNIQUE: Axial images of the pelvis were obtained without IV contrast. Coronal and sagittal reformats were viewed. Automated exposure control was utilized for the study. A dose lowering technique was utilized adhering to the principles of ALARA. FINDINGS: Marked muscular atrophy is noted. There is sigmoid diverticulosis without evidence for acute diverticulitis. There is no acute fracture within the proximal femurs. There is a bone island within the intertrochanteric portion of the right femur. No suspicious osseous lesions are noted. Note is made of an acute minimally displaced fracture of the left sacral ala. There is an equivocal nondisplaced fracture of the right sacral ala. Bladder is mildly distended. No pelvic masses are identified. There is no pelvic lymphadenopathy. There is moderate bilateral hip osteoarthritis. IMPRESSION: 1. Acute minimally displaced fracture of the left sacral ala. Equivocal nondisplaced fracture of the right sacral ala. 2. No acute fracture within the pelvis or hips. 3. Marked muscular atrophy.
[2019-01-24] MEDS: HEPARIN SOD 5,000 UNIT/0.5 ML VIAL SQ SCH (21:14)
[2019-01-25] MEDS: ACETAMINOPHEN 65 ML IV SCH ×3 (01:40→17:54)
[2019-01-25] MEDS: KETOROLAC TROMETHAMINE 15 MG/ML VIAL IV PRN ×3 (03:33→22:09)
[2019-01-25] MEDS: HEPARIN SOD 5,000 UNIT/0.5 ML VIAL SQ SCH ×2 (08:53→22:02)
[2019-01-25] MEDS: LISINOPRIL 5 MG TAB PO SCH (08:53)
[2019-01-25] MEDS ORDERED: ERGOCALCIFEROL 50,000 UNITS CAP PO SCH (09:00)
[2019-01-25] MEDS ORDERED: PHENAZOPYRIDINE HCL 100 MG TAB PO PRN (18:41)
[2019-01-25] MEDS ORDERED: SODIUM CHLORIDE 0.9% 1000ML 1,000 ML IV SCH (18:45)
[2019-01-26] MEDS: ACETAMINOPHEN 65 ML IV SCH ×3 (00:08→18:35)
--- NOTE | 2019-01-26 07:22 | Emergency Department Note ---
Entered by Anahi Polo acting as a scribe for History of Present Illness General Chief complaint: Back Injury/Pain Stated complaint: back pain Time Seen by Provider: 01/24/19 09:59 Source: patient History of Present Illness Onset (ago): day(s) 2 Location: back (lumbar and sacral regions) Radiation: extremity (bilateral upper legs) Pain Consistency: + other (persistent) Maximum Pain Intensity: 7 Exacerbated By: + movement The patient is a 78 year old female who presents to the Emergency Room with complaints of persistent back pain that started 2 days ago. The patient reports that she was lifted 2 days ago by her family into a harness chair and that she has had pain in her lumbar and sacral regions since that time. She states that she has not been able to walk for the past 6 years. She notes that she does not have much feeling in her legs but that she has some mild radiation into her upper bilateral legs. She states that the pain worsens with movement. Home Medications Home Medications Medication Instructions Recorded Confirmed Type fluticasone propionate 1 spray INTRANASAL DAILY 01/24/19 01/24/19 History ibuprofen [Advil] 2 cap PO Q4H PRN 01/24/19 01/24/19 History lisinopril 5 mg PO QAM 01/24/19 01/24/19 History Allergies Allergy/AdvReac Type Severity Reaction Status Date / Time Sulfa (Sulfonamide Allergy Unknown UNKNOWN Verified 01/24/19 10:59 Antibiotics) Past Med/Surg History Medical History Hypertension (Chronic) Osteoporosis (Chronic) Inclusion body myositis (Chronic) Surgical History History of cataract surgery (Chronic) History of hysterectomy (Chronic) Family History Mother Colon cancer Social History Preferred Language: Macedonian Communication Ability: Effective Communication Ability Comment: unable to lift right arm to write, general weakness 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 and A total of 10 systems reviewed and were otherwise negative Physical Exam Vital Signs Vital Signs - 24 hr 01/25/19 07:27 01/25/19 07:39 01/25/19 07:40 Temperature 36.4 C L Temperature Source Oral Pulse Rate [Left Finger] 93 H Pulse Rate [Right Brachial] Pulse Rhythm [Right Brachial] Pulse Strength [Right Brachial] Respiratory Rate 16 Respiratory Effort / Characteristics Non-Labored Spontaneous Respiratory Depth Normal Normal Respiratory Pattern Blood Pressure [Right Arm] 129/72 Blood Pressure Mean [Right Arm] 91 Blood Pressure Position [Right Arm] Lying Pulse Oximetry 95 87 L 90 Oxygen Delivery Method Room Air Nasal Cannula Oxygen Flow Rate 2 2 01/25/19 16:00 01/25/19 23:29 01/26/19 00:20 Temperature 36.9 C 36.7 C Temperature Source Oral Oral Pulse Rate [Left Finger] Pulse Rate [Right Brachial] 99 H 95 H Pulse Rhythm [Right Brachial] Regular Pulse Strength [Right Brachial] Normal Respiratory Rate 20 16 Respiratory Effort / Characteristics Non-Labored Respiratory Depth Normal Normal Respiratory Pattern Regular Blood Pressure [Right Arm] 115/72 140/84 Blood Pressure Mean [Right Arm] 86 102 Blood Pressure Position [Right Arm] Semi-fowlers Lying Pulse Oximetry 96 98 Oxygen Delivery Method Nasal Cannula Nasal Cannula Nasal Cannula Oxygen Flow Rate 2 2.0 2 GENERAL: Patient is cachectic in appearance. HEAD: Normocephalic atraumatic EYES: Ocular movements intact pupils equal and react to light OROPHARYNX mucous membranes are moist no exudates present no erythema or edema present NECK: Supple no nuchal rigidity CHEST: Good equal expansion LUNGS: Clear and equal to auscultation CARDIAC: Normal S1 and S2 ABDOMEN: Soft nontender no guarding BACK: No CVA tenderness, tenderness to palpation in L5 and S1 area. EXTREMITIES: No pain upon palpation normal muscle strength in all groups no clubbing cyanosis or edema NEURO: Patient is following commands is answering questions appropriately. Alert and oriented x3 Cranial Nerves 2-12 grossly intact Course 1002: Past medical records reviewed. The patient was evaluated in room A12B, and a complete history and physical examination were performed. 1100: I discussed the patient's case with Dr. Ap Shipley, Orthopedics, and he agreed with the patient's course of treatment. 1139: I reviewed the patient's case with VÍCTOR Hairston. She will evaluate the patient for further management. 1200: I discussed the treatment plan with the patient and she was amenable to the plan. She will be evaluated by Libia Saleh, for further management. Consultations Consultation #1: I discussed the patient's case with Dr. Shipley, Orthopedics, who agreed with the patient's course of treatment. Time: 11:00 Consultation #2: I reviewed the patient's case with VÍCTOR Hairston. She will evaluate the patient for further management. Time: 11:39 Administered Medications Ergocalciferol (Vitamin D2) 50,000 units PO Q7D@0900 FAVIOLA Stop: 03/01/19 09:01 Last Admin: 01/25/19 08:53 Dose: 50,000 units Documented by: [id number] Heparin Sodium (Porcine) (Heparin Sodium (Porcine)) 5,000 units SQ Q12 FAVIOLA Stop: 02/23/19 20:59 Last Admin: 01/25/19 22:02 Dose: Not Given Documented by: [id number] Admin: 01/25/19 08:53 Dose: 5,000 units Documented by: [id number] Cosigned by: [id number] Admin: 01/24/19 21:14 Dose: 5,000 units Documented by: [id number] Cosigned by: [id number] Acetaminophen (Ofirmev) 65 mls @ 200 mls/hr IV Q8H FAVIOLA Stop: 02/23/19 16:59 Last Infusion: 01/26/19 00:35 Dose: 0 mls/hr Documented by: [id number] Admin: 01/26/19 00:08 Dose: 200 mls/hr Documented by: [id number] Infusion: 01/25/19 18:26 Dose: 0 mls/hr Documented by: [id number] Admin: 01/25/19 17:54 Dose: 200 mls/hr Documented by: [id number] Infusion: 01/25/19 11:06 Dose: 0 mls/hr Documented by: [id number] Admin: 01/25/19 09:10 Dose: 200 mls/hr Documented by: [id number] Infusion: 01/25/19 02:04 Dose: 0 mls/hr Documented by: [id number] Admin: 01/25/19 01:40 Dose: 200 mls/hr Documented by: [id number] Infusion: 01/24/19 17:53 Dose: 0 mls/hr Documented by: [id number] Admin: 01/24/19 17:33 Dose: 200 mls/hr Documented by: [id number] Sodium Chloride (Nss 1000ml) 1,000 mls @ 60 mls/hr IV .[id number] FAVIOLA Stop: 01/26/19 11:24 Last Infusion: 01/26/19 05:32 Dose: 60 mls/hr Documented by: [id number] Admin: 01/25/19 18:58 Dose: 60 mls/hr Documented by: [id number] Ketorolac Tromethamine (Toradol) 15 mg IV Q6H PRN PRN Reason: Pain Stop: 01/29/19 15:49 Last Admin: 01/25/19 22:09 Dose: 15 mg Documented by: [id number] Admin: 01/25/19 13:57 Dose: 15 mg Documented by: [id number] Admin: 01/25/19 03:33 Dose: 15 mg Documented by: [id number] Lisinopril (Zestril) 5 mg PO QAM FAVIOLA Stop: 02/24/19 08:59 Last Admin: 01/25/19 08:53 Dose: 5 mg Documented by: [id number] Discontinued Medications Hydromorphone HCl (Dilaudid) 0.25 mg IV NOW STA Stop: 01/24/19 10:04 Last Admin: 01/24/19 10:19 Dose: 0.25 mg Documented by: [id number] Dextrose/Sodium Chloride (D5w And Nss) 1,000 mls @ 60 mls/hr IV .[id number] FAVIOLA Stop: 01/25/19 08:39 Last Infusion: 01/25/19 11:06 Dose: 0 mls/hr Documented by: [id number] Admin: 01/24/19 17:53 Dose: 60 mls/hr Documented by: [id number] Ondansetron HCl (Zofran) 4 mg IV NOW STA Stop: 01/24/19 10:04 Last Admin: 01/24/19 10:19 Dose: 4 mg Documented by: [id number] Medical Decision Making Differential Diagnosis Differential diagnosis: Etiologies such as fracture, cervical/vertebral injury, dislocation, intra- abdominal process, pneumothorax, intrathoracic trauma, intracranial injury, soft tissue injury, neurologic process, as well as other traumatic pathologies were entertained. Medical Records Attestation: I reviewed the patient's medical records. Home Medications Current Medication List: was personally reviewed by me Laboratory Data Attestation: I reviewed the patient's lab results. Result diagrams: 01/24/19 14:14 01/24/19 14:14 Lab Results 01/24/19 01/24/19 01/24/19 Range/Units 14:14 14:14 14:14 WBC 4.01 L (4.8-10.8) K/uL RBC 3.64 L (4.2-5.4) M/uL Hgb 11.0 L (12.0-16.0) g/dL Hct 32.8 L (37-47) % MCV 90.1 (80-100) fL MCH 30.2 (25-34) pg MCHC 33.5 (32-36) g/dL RDW Std Deviation 46.8 H (36.4-46.3) fL RDW Coeff of Brooklynn 14.2 (11.5-14.5) % Plt Count 139 (130-400) K/uL MPV 8.9 (7.4-10.4) fL PT INR Sodium 138 (136-145) mmol/L Potassium 4.8 (3.5-5.1) mmol/L Chloride 109 H (98-107) mmol/L Carbon Dioxide 23 (21-32) mmol/L Anion Gap 6.0 (3-11) BUN 21 H (7-18) mg/dl Creatinine 0.18 L (0.6-1.2) mg/dl Est Cr Clr Drug Dosing 207.0 ml/min Est GFR ( Amer) > 150.0 Est GFR (Non-Af Amer) 130.7 BUN/Creatinine Ratio 116.7 H (10-20) Glucose 77 (70-99) mg/dl Calcium 9.0 (8.5-10.1) mg/dl 25-OH Vitamin D Total 12.3 L (30-100) ng/ml 01/24/19 01/24/19 Range/Units 15:50 16:31 WBC (4.8-10.8) K/uL RBC (4.2-5.4) M/uL Hgb (12.0-16.0) g/dL Hct (37-47) % MCV (80-100) fL MCH (25-34) pg MCHC (32-36) g/dL RDW Std Deviation (36.4-46.3) fL RDW Coeff of Brooklynn (11.5-14.5) % Plt Count (130-400) K/uL MPV (7.4-10.4) fL PT Cancelled 11.5 INR Cancelled 1.1 Sodium (136-145) mmol/L Potassium (3.5-5.1) mmol/L Chloride (98-107) mmol/L Carbon Dioxide (21-32) mmol/L Anion Gap (3-11) BUN (7-18) mg/dl Creatinine (0.6-1.2) mg/dl Est Cr Clr Drug Dosing ml/min Est GFR ( Amer) Est GFR (Non-Af Amer) BUN/Creatinine Ratio (10-20) Glucose (70-99) mg/dl Calcium (8.5-10.1) mg/dl 25-OH Vitamin D Total (30-100) ng/ml Imaging Data Radiologist's Impression: Radiology results as stated below per my review and the radiologist's interpretation: CT OF THE LUMBAR SPINE WITHOUT CONTRAST CLINICAL HISTORY: Low back pain. COMPARISON STUDY: Lumbar spine radiographs December 16, 2010. TECHNIQUE: Axial images of the lumbar spine were obtained. Sagittal and coronal reconstructions were viewed. Automated exposure control was utilized for the study. A dose lowering technique was utilized adhering to the principles of ALARA. FINDINGS: An old severe T12 compression fractures unchanged since chest CT of November 01, 2017. There is no acute lumbar spine fracture. Paravertebral soft tissues are unremarkable. No suspicious osseous lesion is identified by CT. The central canal and neural foramen are suboptimally assessed by CT. There is suspected moderate central canal narrowing at L4-L5. Facet joints are intact. 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 Note is made of a minimally displaced fracture of the left sacroiliac which is likely acute. There is subtle sclerosis within the right sacral ala without definitive fracture. IMPRESSION: 1. Acute minimally displaced fracture of the left sacral ala. Equivocal nondisplaced fracture of the right sacral ala. 2. No acute lumbar spine fracture. 3. No change in a severe T12 compression fracture since chest CT of November 01, 2017. Electronically signed by: Reyes Park M.D. 01/24/2019 10:[address] OF THE PELVIS WITHOUT CONTRAST CLINICAL HISTORY: Low back pain. COMPARISON STUDY: No previous studies for comparison. TECHNIQUE: Axial images of the pelvis were obtained without IV contrast. Coronal and sagittal reformats were viewed. Automated exposure control was utilized for the study. A dose lowering technique was utilized adhering to the principles of ALARA. FINDINGS: Marked muscular atrophy is noted. There is sigmoid diverticulosis without evidence for acute diverticulitis. There is no acute fracture within the proximal femurs. There is a bone island within the intertrochanteric portion of the right femur. No suspicious osseous lesions are noted. Note is made of an acute minimally displaced fracture of the left sacral ala. There is an equivocal nondisplaced fracture of the right sacral ala. Bladder is mildly distended. No pelvic masses are identified. There is no pelvic lymphadenopathy. There is moderate bilateral hip osteoarthritis. IMPRESSION: 1. Acute minimally displaced fracture of the left sacral ala. Equivocal nondisplaced fracture of the right sacral ala. 2. No acute fracture within the pelvis or hips. 3. Marked muscular atrophy. Electronically signed by: Reyes Park M.D. 01/24/2019 10:59 AM Blood Pressure Blood Pressure Findings: Elevated blood pressure Blood Pressure Disposition: Referred to patients primary care provider USMAN Narrative This is a 78-year-old female who presents emergency department complaining of back pain after being lifted into her chair. An IV was established, the patient was given Dilaudid here in the emergency department as well as Toradol. Repeat examination revealed improvement the patient's pain. She was sent for a CAT scan of the pelvis as well as spine. This was concerning for sacral alae fractures. The patient is cared for at home by her family and they are uncomfortable with taking her home as they feel they have caused the fractures. For this reason she was discussed with the hospitalist service so that she can be placed in a rehabilitation hospital. Patient and family were in agreement with the treatment plan. Impression & Plan Back pain, Sacral fracture Discharge Plan Visit Data *Final* Discharge Date/Time: 01/24/19 13:18 Chief Complaint: Back Injury/Pain Stated Complaint: back pain ED Provider: Trav Reyes Discharge Problem: Back pain, Sacral fracture Patient Disposition: Admitted As Inpatient Discharge Instructions Interventions: ED Discharge Assessment Last Done: 01/24/19 13:18 The scribe's documentation has been prepared under my direction and personally reviewed by me in its entirety. I confirm that the note above accurately reflects all work, treatment, procedures, and medical decision making performed by me.
[2019-01-26 07:39] LABS: BUN Creatinine Ratio 221.8 (10-20); Blood Urea Nitrogen 35 mg/dl (7-18); Calcium 8.4 mg/dl (8.5-10.1); Carbon Dioxide 23 mmol/L (21-32); Chloride 116 mmol/L (98-107); Creatinine Clr Calc Pharmacy 232.9 ml/min; Est GFR (African American) > 150.0; Est GFR (Non-African American) 135.8; Glucose 91 mg/dl (70-99); Potassium 4.4 mmol/L (3.5-5.1); Sodium 146 mmol/L (136-145)
--- NOTE | 2019-01-26 07:51 | Hospitalist Progress Note ---
Date of Service January 26, 2019 Assessment & Plan (1) Inclusion body myositis: (2) Sacral fracture: -Admit to [facility] -Patient presenting from home with increasing low back pain for the last 4 days; in the ED, patient was found to have bilateral sacral ala fractures -Admit for pain control -will try [id number] Tylenol and as needed tramadol -PT/OT evaluations -noted patient is bedbound and Brittany lift dependent for transfers Per Ortho Dr. Mcqueen: No surgical intervention indicated at this time. Patient will need to maintain non weightbearing on bilateral lower extremities. Patient does not ambulate. Patient may sit in chair And use Brittany lift for transfers. Will require pain control, PT/OT. Will need follow-up in the office in 2 weeks for repeat XRs/follow up with Dr. Mcqueen, . - pain well controlled as per patient not able to tolerate pills, hence patient on IV Ofirmev and Toradol continue present regimen will order Speech Eval, hopefully patient will be able to tolerate PO meds (3) At risk for aspiration: patient has been having episodes of dysphagia with solids and liquids NPO for now- except for water from patient's own water bottle- does not report cough when drinking from this Speech therapy eval (4) Hypertension: -BP intermittently elevated, likely secondary to pain -Continue home dose of lisinopril for now, make adjustments as needed (5) DVT prophylaxis: -SQ heparin Subjective delayed entry date of service 01/25/19 seen resting in bed, RN at bedside patients states she tolerated breakfast and lunch well for dinner, patient was coughing upon drinking Sprite with a straw, soft diet no shortness of breath low back pain about 4/10 no other symptoms Physical Exam Vital Signs (Past 24 Hours): Last Vital Signs Temp 36.7 C 01/25/19 23:29 Pulse 95 H 01/25/19 23:29 Resp 16 01/25/19 23:29 BP 140/84 01/25/19 23:29 Pulse Ox 98 01/25/19 23:29 Physical Exam: General- oriented x 3, not in distress, speaks in sentences with no effort or accessory muscle use Eyes- anicteric Neck- no JVD Lungs- clear BS BL Heart- normal rate, regular rhythm; no murmurs Abdomen- normal bowel sounds, nondistended, soft, nontender Extremities- no pretibial edema, no calf tenderness Neuro- alert, oriented x 3; diffuse motor weakness, unchanged Skin- warm & dry Results & Data Laboratory Results noted and reviewed
[2019-01-26] MEDS: HEPARIN SOD 5,000 UNIT/0.5 ML VIAL SQ SCH ×2 (08:42→23:23)
[2019-01-26] MEDS: LISINOPRIL 5 MG TAB PO SCH (10:22)
--- NOTE | 2019-01-26 10:44 | Hospitalist Progress Note ---
Date of Service January 26, 2019 Assessment & Plan (1) Inclusion body myositis: (2) Sacral fracture: Patient presenting from home with increasing low back pain for the last 4 days; in the ED, patient was found to have bilateral sacral ala fractures -Admitted for pain control -will try [id number] Tylenol and as needed tramadol -Patient is bedbound and Brittany lift dependent for transfers -- not interested in PT/OT evaluations at this time -Per Ortho Dr. Mcqueen, no surgical intervention indicated at this time. Patient will need to maintain non weightbearing on bilateral lower extremities. Patient does not ambulate. Patient may sit in chair And use Brittany lift for transfers. Will need follow-up in the office in 2 weeks for repeat XRs/follow up with Dr. Mcqueen, (3) At risk for aspiration: Patient has been having episodes of dysphagia with solids and liquids -Resumed PO diet today with assistance, tolerated well -Speech therapy eval * Slippery minced and moist diet. Avoid foods that are doughy, thick, sticky or dry. Add extra liquids and condiments to foods as needed to make the more slippery * Continue aspiration precautions * Dose of Toradol in conjunction with mealtimes. Speech service to check on patient again tomorrow to ensure she is tolerating oral diet with increased safety (4) Hypertension: -BP intermittently elevated, likely secondary to pain -Continue home dose of lisinopril for now, make adjustments as needed (5) DVT prophylaxis: -SQ heparin Supervising Physician Co-Signing Physician Notes Attending Addendum: care coordinated with GISSELLE Gohtra please refer to her notes for full details, I agree with her notes patient seen and examined, records reviewed by myself as well on exam, patient seen resting in bed pain well controlled had problems with swallowing during dinner no other symptoms VS noted and reviewed oriented x 3, not in distress, speaks in sentences with no effort nor accessory muscle use normal rate, regular rhythm, no murmurs clear breath sounds bilaterally non distended, soft, nontender no bipedal edema, erythema, warmth (+) diffuse muscle weakness- chronic crea 0.16 ASSESSMENT AND PLAN SACRAL ALAR FRACTURES pain well controlled Dysphagia NPO ordered Speech Therapist consulted other diagnoses and plan of care as per GISSELLE Ghotra's notes Santy Chen MD Subjective Patient seen and examined. Eating breakfast with daughter's assistance. Has some discomfort of sacral area when sitting upright. States that IV tylenol is working. Denies fever, chills, lightheadedness, chest pain, SOB, nausea, vomiting, abdominal pain or dysuria. Had decreased urinary output this morning but was NPO overnight. Physical Exam Vital Signs (Past 24 Hours): Last Vital Signs Temp 36.5 C 01/26/19 08:00 Pulse 88 01/26/19 08:00 Resp 18 01/26/19 09:03 BP 143/82 H 01/26/19 08:00 Pulse Ox 96 01/26/19 09:03 Physical Exam: General Appearance: WD/WN, no apparent distress, appears chronically ill Head: normocephalic, atraumatic Eyes: normal inspection, PERRL, EOMI ENT: hearing grossly normal, pharynx normal (moist mucous membranes) Neck: supple, no JVD, no adenopathy Respiratory/Chest: lungs clear to auscultation. No wheezes, rales or rhonci. No respiratory distress or accessory muscle use Cardiovascular: regular rate, rhythm, no murmur, normal peripheral pulses Abdomen/GI: normal bowel sounds, soft, non-tender to palpation Extremities/Musculoskelatal: normal inspection, no calf tenderness, normal capillary refill, no pedal edema Neurologic/Psych: alert, normal mood/affect, oriented x 3 Skin: normal color, warm/dry Results & Data Laboratory Results [facility] 01/26/19 06:45 Sodium 146 H D Potassium 4.4 Chloride 116 H Carbon Dioxide 23 BUN 35 H D Creatinine 0.16 L Glucose 91 Calcium 8.4 L
[2019-01-26] MEDS ORDERED: SODIUM CHLORIDE 0.45 % 1,000 ML IV SCH (10:45)
[2019-01-26] MEDS: TRAMADOL HCL 50 MG TABLET PO PRN ×2 (14:14→23:29)
[2019-01-27] MEDS: ACETAMINOPHEN 65 ML IV SCH ×3 (01:03→16:20)
[2019-01-27 07:11] LABS: Hematocrit (blood only) 28.4 % (37-47); Hemoglobin 9.3 g/dL (12.0-16.0); Mean Corpuscular Hgb Conc 32.7 g/dL (32-36); Mean Corpuscular Volume 90.7 fL (80-100); Mean Platelet Volume 8.6 fL (7.4-10.4); Platelet Count 129 K/uL (130-400); RDW Coefficient of Variation 14.9 % (11.5-14.5); RDW Standard Deviation 49.7 fL (36.4-46.3); Red Blood Count 3.13 M/uL (4.2-5.4); White Blood Count 3.88 K/uL (4.8-10.8)
[2019-01-27 07:40] LABS: Blood Urea Nitrogen 38 mg/dl (7-18); Calcium 8.2 mg/dl (8.5-10.1); Carbon Dioxide 21 mmol/L (21-32); Chloride 115 mmol/L (98-107); Creatinine Clr Calc Pharmacy 248.4 ml/min; Est GFR (African American) > 150.0; Est GFR (Non-African American) 138.7; Glucose 62 mg/dl (70-99); Potassium 4.3 mmol/L (3.5-5.1); Sodium 145 mmol/L (136-145)
[2019-01-27] MEDS: LISINOPRIL 5 MG TAB PO SCH (08:58)
[2019-01-27] MEDS: HEPARIN SOD 5,000 UNIT/0.5 ML VIAL SQ SCH (09:04)
--- NOTE | 2019-01-27 15:53 | Hospitalist Progress Note ---
Date of Service January 27, 2019 delayed entry date of service as noted above Assessment & Plan (1) Inclusion body myositis: (2) Sacral fracture: Osteoporosis -related -Admitted for pain control -[id number] Tylenol and as needed tramadol -Patient is bedbound and Brittany lift dependent for transfers -- not interested in PT/OT evaluations at this time -Per Ortho Dr. Mcqueen, no surgical intervention indicated at this time. Patient will need to maintain non weightbearing on bilateral lower extremities. Patient does not ambulate. Patient may sit in chair And use Brittany lift for transfers. Will need follow-up in the office in 2 weeks for repeat XRs/follow up with Dr. Mcqueen, - pain well controlled, much better discharged on PRN Tylenol and Tramadol ff up with Ortho as noted above (3) At risk for aspiration: Patient has been having episodes of dysphagia with solids and liquids -Speech therapy eval * Slippery minced and moist diet. Avoid foods that are doughy, thick, sticky or dry. Add extra liquids and condiments to foods as needed to make the more slippery * Continue aspiration precautions * Dose of Toradol in conjunction with mealtimes. Speech service to check on patient again tomorrow to ensure she is tolerating oral diet with increased safety * - patient had no problems with eating/swallowing on discharge day continue to monitor as outpatient (4) Hypertension: -BP intermittently elevated, likely secondary to pain -Continue home dose of lisinopril for now monitor as outpatient Possible Urinary Retention? - patient bladder scanned while admitted due to poor urine output: ~300cc, needed to be straight cathed - patient denies bladder pain/pressure states she voids well at home - discussed with Dr. Bay- Urologist hold off on straight cath/Cotto for now - monitor for symptoms of urinary retention, renal function (5) DVT prophylaxis: -SQ heparin DC home ff up with PCP as outlined in dc instructions ff up with Ortho as outlined above Subjective ff up for sacral fracture seen resting in bed, comfortable states she feels better overall pain is well controlled no problems eating now denies suprapubic pain, bladder discomfort, states he has no problems voiding at home no other symptoms Physical Exam Vital Signs (Past 24 Hours): Last Vital Signs Temp 36.8 C 04/02/19 15:29 Pulse 90 01/27/19 15:29 Resp 16 01/27/19 15:29 BP 144/77 H 01/27/19 15:29 Pulse Ox 96 01/27/19 15:29 Physical Exam: General- oriented x 3, not in distress, speaks in sentences with no effort or accessory muscle use Eyes- anicteric Neck- no JVD Lungs- clear BS BL, no rales/wheezing Heart- normal rate, regular rhythm; no murmurs Abdomen- normal bowel sounds, nondistended, soft, nontender Extremities- no pretibial edema, no calf tenderness Neuro- alert, oriented x 3; (+) diffuse muscle weakness- baseline Skin- warm & dry Results & Data Laboratory Results noted and reviewed
--- NOTE | 2019-01-29 15:23 | Discharge Summary ---
Date of Service January 29, 2019 Admission HPI Per Admitting Provider 78-year-old female who presents to the ED with back pain. 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 Patient reports a few days ago, she was being transferred in her [facility] lift when she was not seated correctly and subsequently twisted her back and had onset of low back pain. Patient reports pain has been persistent. She has tried taking [id number] Advil however did this did not relieve her pain. Patient reports she otherwise has been feeling well recently. No chest pain or shortness of breath. She denies lightheadedness, dizziness, diaphoresis, syncopal events. No abdominal pain, nausea, vomiting, diarrhea. She denies fevers and chills. No urinary symptoms. In the ED, pelvis CT shows an acute minimally displaced fracture of the left sacral ala and equivocal nondisplaced fracture of the right sacral ala. Patient was given IV Dilaudid 0.25 mg in the ED and reports marked improvement in her pain. Admission Exam Per Admitting Provider Vital Signs (Past 24 Hours): Last Vital Signs Temp 36.5 C 01/24/19 13:53 Pulse 70 01/24/19 13:53 Resp 16 01/24/19 13:53 BP 171/99 H 01/24/19 13:53 Pulse Ox 95 01/24/19 13:53 Constitutional: WD/WN, vitals as above + thin Eyes: PERRL, conjunctivae normal, anicteric sclerae ENMT: external ear and nose normal, oropharynx normal Respiratory: normal respiratory effort, lungs clear to auscultation Cardiovascular: Rate/Rhythm: regular rate and regular rhythm Heart Sounds: + murmur (grade 3/6) Vessels: normal peripheral pulses Extremities: no edema Gastrointestinal (Abdomen): normal bowel sounds, soft, nontender, no hepatosplenomegaly Musculoskeletal: Extremities: + abnormal strength (only has movement in hands and feet; unable to lift arms or legs); no cyanosis and no clubbing Skin: no rashes, warm and dry Neurologic: PERRL, EOMI, accommodation nl, no face palsy, no dysarthria Psychiatric: A+Ox3, euthymic affect Principal Diagnosis Sacral Fractures Discharge Exam Vital Signs (Past 24 Hours): Last Vital Signs Temp 36.8 C 01/27/19 15:29 Pulse 90 01/27/19 15:29 Resp 16 01/27/19 15:29 BP 144/77 H 01/27/19 15:29 Pulse Ox 96 01/27/19 15:29 Physical Exam: General- oriented x 3, not in distress, speaks in sentences with no effort or accessory muscle use Eyes- anicteric Neck- no JVD Lungs- clear BS BL, no rales/wheezing Heart- normal rate, regular rhythm; no murmurs Abdomen- normal bowel sounds, nondistended, soft, nontender Extremities- no pretibial edema, no calf tenderness Neuro- alert, oriented x 3; (+) diffuse muscle weakness- baseline Skin- warm & dry Discharge Data Allergies Allergy/AdvReac Type Severity Reaction Status Date / Time Sulfa (Sulfonamide Allergy Unknown UNKNOWN Verified 01/24/19 10:59 Antibiotics) Consultations 01/24/19 13:13 ED Decision to Admit Stat 01/24/19 14:06 Consult Case Management - Discharge Planning Routine Consult Orthopedic Surgery Routine Ordered Studies 01/24/19 10:03 CT lumbar spine wo con Stat IMPRESSION: 1. Acute minimally displaced fracture of the left sacral ala. Equivocal nondisplaced fracture of the right sacral ala. 2. No acute lumbar spine fracture. 3. No change in a severe T12 compression fracture since chest CT of November 01, 2017. CT pelvis wo con Stat IMPRESSION: 1. Acute minimally displaced fracture of the left sacral ala. Equivocal nondisplaced fracture of the right sacral ala. 2. No acute fracture within the pelvis or hips. 3. Marked muscular atrophy. Hospital Course (1) Inclusion body myositis: (2) Sacral fracture: Osteoporosis -related -Admitted for pain control -[id number] Tylenol and as needed tramadol -Patient is bedbound and [facility] dependent for transfers -- not interested in PT/OT evaluations at this time -Per Ortho Dr. Mcqueen, no surgical intervention indicated at this time. Pa tient will need to maintain non weightbearing on bilateral lower extremities. Patient does not ambulate. Patient may sit in chair And use [facility] for transfers. Will need follow-up in the office in 2 weeks for repeat XRs/follow up with Dr. Mcqueen, - pain well controlled, much better discharged on PRN Tylenol and Tramadol ff up with Ortho as noted above (3) Hypertension: -BP intermittently elevated, likely secondary to pain -Continue home dose of lisinopril for now monitor as outpatient Possible Urinary Retention? - patient bladder scanned while admitted due to poor urine output: ~300cc, needed to be straight cathed - patient denies bladder pain/pressure states she voids well at home - discussed with Dr. Bay- Urologist hold off on straight cath/Cotto for now - monitor for symptoms of urinary retention, renal function (4) DVT prophylaxis: -SQ heparin DC home ff up with PCP as outlined in dc instructions ff up with Ortho as outlined above Total Time Total Time Spent Total Time Spent (In Minutes): 40 mins Discharge Plan Discharge Items Patient Disposition: Home - Home Health Services Reason For Visit: SACRAL FRACTURE Discharge Diagnosis: SACRAL FRACTURE Discharge Goals: Diagnostic testing Activity: As commented below Activity Comment: NONWEIGHTBEARING ON THE LOWER EXTREMITIES Non-emergency contact: Primary Care Provider Call non-emergency contact if: you have any medication questions, your symptoms worsen, your pain is not controlled, your pain is worsening, your pain is unusual for you, your pain is concerning for you and you have a fever Follow-up/Referrals: Keke Colon [Primary Care Provider] - Addtl Provider Instructions: Patient will need to maintain non weightbearing on bilateral lower extremities. Patient does not ambulate. Patient may sit in chair And use [facility] for transfers. Follow up with Orthopedic Surgeon Dr. Mcqueen in 2 weeks. Please call his office for an appointment. Tel. No. [phone]. For pain control, alternate Tyenol and Tramadol. Do not take more than 3,000mg of Tylenol in 1 day. You may take Tramadol 50mg every 6 hours as needed for pain. Always drink plenty of fluids. Call your primary care physician immediately if with increasing bladder discomfort/pressure, not urinating normally. Please follow speech therapy recommendations: Slippery minced and moist diet: Choose foods that are moist, loose, slippery Avoid foods that are not oblique, thick, sticky, dry Add extra liquids and can condiments to foods as needed to make a more slippery Aspiration and reflux precautions as listed Alternate solids and liquids Feed when fully alert and upright Give meds in a carrier Single bites/small sips/slow rate Alternate solids and liquids Head of bed 30 degrees all time Upright with meals for at least 30 minutes Prescriptions: New tramadol 50 mg Tablet 50 mg PO Q6H PRN (Reason: pain) 7 Days Qty: 15 RF: 0 acetaminophen 500 mg capsule 500 mg PO Q6H PRN (Reason: pain) Qty: 20 RF: 0 Continued lisinopril 5 mg tablet 5 mg PO QAM RF: 0 fluticasone propionate 50 mcg/actuation spray,suspension 1 spray intranasal DAILY RF: 0 Discontinued ibuprofen [Advil] 200 mg Tablet 2 cap PO Q4H PRN (Reason: Pain) RF: 0 Stand-Alone Forms: [facility], [facility] Discharge Orders: Discharge Order (Routine); Ordered 01/27/19 Ordered By: Santy Chen Admission Data Admit Date/Time: 01/24/19 12:36 Attending Provider: Santy Chen Admit Provider: Santy Chen Primary Care Provider: Keke Colon Other Providers: Santy Chen ; Ap Mcqueen Service: Surgical Services Other Interventions: Discharge Summary Assessment (RN) Last Done: 01/27/19 16:51 DC Date/Time DO NOT enter until pt leaves facility: 01/27/19 18:16
== END 2019-01-27 18:16 | disposition home health service (06) | DRG 544 ==
LOC: ED 09:55 → 3W 12:36